=== PATIENT | male | born 1985 | race Caucasian/White ===

== ENCOUNTER 2016-06-24 14:02 | Inpatient (IN) | payer MEDICAID ==
[2016-06-24] MEDS ORDERED: ONDANSETRON 4 MG/2 ML VIAL IVP ONE (14:14)
[2016-06-24] MEDS ORDERED: NS 1,000 ML IV ONE (14:14)
[2016-06-24] MEDS ORDERED: HYDROmorphONE/DILAUDID 1 MG/ML SYR IVP ONE ×3 (14:23→16:46)
--- NOTE | 2016-06-24 14:26 | EDPHY ---
General Narrative: CHIEF COMPLAINT: Abdominal pain, vomiting, diarrhea HISTORY OF PRESENT ILLNESS: Patient complains of abdominal pain, vomiting, diarrhea started night into Wednesday morning. It is severe pain. It is worse on the left but generalized. Associated with multiple bouts of vomiting. There has been some blood in the stools but none in the vomit. Able to keep some of his pain medication liquids down today. No fever. No urinary complaints. No chest or back pain. He has had some shortness of breath over the past few weeks. No trauma or injury. He has had C. difficile colitis twice in the past 10 months. He was treated most recently January with inpatient stay and then outpatient management. No known ulcerative colitis or Crohn's disease. Reportedly normal colonoscopy last fall. No other associated complaints or modifying factors. PREVIOUS ABDOMINAL SURGERIES/DIAGNOSES: Recurrent C difficile colitis NPO: 2 days of solids, liquids this morning REVIEW OF SYSTEMS: Ten systems reviewed and are negative unless otherwise noted in the HPI EXAMINATION: General Appearance: Alert, no distress, unkempt, in obvious discomfort Head: normocephalic, atraumatic Eyes: Pupils equal and round, no conjunctival pallor or injection. EOMs intact. ENT, Mouth: Mucous membranes moist. Poor dentition throughout Neck: Normal inspection, supple, non-tender Respiratory: Lungs are clear to auscultation. No wheezing, rhonchi or crackles. Cardiovascular: Tachycardic rate with regular rhythm. No murmur. Gastrointestinal: Abdomen is soft. Significant tenderness on the left side. No tympany. No rigidity. There is guarding in all quadrants. No CVA tenderness Neurological: A&O, nonfocal, strength is symmetric Skin: Warm and dry, no rash. No petechia purpura Extremities: Nontender, no pedal edema Psychiatric: Mood and affect normal DIFFERENTIAL DIAGNOSES: Including but not limited to C diff colitis, colitis, diverticulitis perforated colitis, perforated diverticulitis, enteritis MDM: 2:25 p.m. Abdominal pain with nausea, vomiting and diarrhea. Patient's vital signs are tachycardic and tachypneic, thus I did order blood cultures and a lactic acid. He is not hypotensive. He does have significant abdominal tenderness to palpation. I have ordered CT scan of the abdomen pelvis, IV fluid resuscitation and pain medications. He is in no acute distress. 4:50 p.m. Notified by radiologist Dr. Mays. CT scan findings reveal inflammation of the small bowel and stomach suggesting enteritis. There is also some mild thickening of the descending colon that would match his clinical picture of colitis. No perforation or abscess. Laboratory studies revealed leukocytosis. I have already ordered p. o. vancomycin as the patient has had 2 episodes of C difficile colitis in the past that failed Flagyl by mouth. Chest x-ray is clear. Vital signs remained stable with some tachycardia. Pain is improving but not tolerable by his admission. 5:08 p.m. I have discussed the case with Dr. Shin and she will admit the patient. C difficile toxin is pending at this time. I suspect by history and examination of the sample this is C difficile colitis. He is not septic and does not have any evidence of ischemic bowel. He has nonacute abdomen but he is in moderate to severe amount of pain. He remains hemodynamically stable in no acute distress. He is ambulatory without assistance. He is admitted in stable condition. ED Precautions: Worsening pain. Fever. Bloody stools. Bloody emesis. Constipation or diarrhea. SUPERVISION: This patient was independently evaluated without direct examination by the attending physician. Case was discussed with attending physician. - Diagnostics Imaging: Discussed imaging studies w/ at home independent call center agent Radiologist Imaging Results: Imaging Impressions Chest X-Ray 06/24/16 14:26 Impression: Mild peribronchial thickening, without focal alveolar consolidation. Abdomen CT 06/24/16 14:27 Impression: 1. Query mild gastroenteritis. 2. Very mild descending colitis suspected in this patient with localized pain, diarrhea, and prior repetitive colitis episodes. There is no evidence of a pericolonic abscess. Findings were discussed with Aaron Mccarthy PA-C at 16:47, on 06/24/2016. - History Smoking Status: Current every day smoker - Objective Vital Signs: Initial Vital Signs Temperature (C) 97.3 F 06/24/16 14:04 Heart Rate 123 H 06/24/16 14:04 Respiratory Rate 20 06/24/16 14:04 Blood Pressure 131/74 H 06/24/16 14:04 O2 Sat (%) 98 06/24/16 14:04 O2 Delivery Mode Room Air Allergies/Adverse Reactions: gabapentin Allergy (Mild, Verified 06/24/16 14:04) pregabalin [From Lyrica] Allergy (Mild, Verified 06/24/16 14:08) pineapple Allergy (Verified 06/24/16 14:04) Home Medications: Medication Instructions Recorded Ondansetron Odt [Zofran Odt 4 mg 4 mg PO Q4 PRN #10 tab 05/27/15 (*)] Albuterol [Proventil Inhaler HFA 1 - 2 puffs IH BID PRN 01/21/16 (*)] Eszopiclone [Lunesta] 3 mg PO HS 01/21/16 Hydromorphone HCl 4 mg PO BID PRN 01/21/16 Ketamine Nasal [place] 1 spray NASAL TID PRN 01/21/16 clonazePAM [klonoPIN (*)] 1 mg PO TID PRN 01/21/16 morphINE SR [MS Contin/Oramorph 60 60 mg PO BID 01/21/16 mg (*)] morphINE SR [MS Contin/Oramorph SR 30 mg PO DAILY@1200 01/21/16 30 mg (*)] L.acidoph,Paracasei, B.lactis 1 each PO DAILY 02/03/16 [Probiotic] Multivitamins [Multivitamin (*)] 1 each PO DAILY 02/03/16 QUEtiapine FUMARATE [Seroquel 100 150 mg PO HS 02/03/16 mg (*)] Rizatriptan Benzoate [Rizatriptan] 10 mg PO PRN PRN 02/03/16 oxyCODONE HCL [Roxicodone] 30 mg PO Q6 PRN 02/03/16 Promethazine HCl [Phenergan 25mg 12.5 - 25 mg PO Q6HRS PRN #20 tab 02/07/16 (*)] Promethazine HCl [Phenergan] 25 mg RC Q6 PRN #10 supp.rect 02/07/16 Laboratory Results: Laboratory Results 06/24/16 14:35 06/24/16 14:35 06/24/16 06/24/16 06/24/16 15:30 14:35 14:35 WBC RBC Hgb Hct MCV MCH MCHC RDW Plt Count MPV Neut % (Auto) Lymph % (Auto) [place] % (Auto) Eos % (Auto) Baso % (Auto) Nucleat RBC Rel Count Absolute Neuts (auto) Absolute Lymphs (auto) Absolute Monos (auto) Absolute Eos (auto) Absolute Basos (auto) Absolute Nucleated RBC Immature Gran % Immature Gran # PT INR APTT VBG Lactic Acid 1.5 mmol/L mmol/L (0.7-2.1) Sodium 141 mEq/L mEq/L (134-144) Potassium 4.6 mEq/L mEq/L (3.5-5.2) Chloride 107 mEq/L mEq/L (97-110) Carbon Dioxide 23 mEq/l mEq/l (22-31) Anion Gap 11 mEq/L mEq/L (8-16) BUN 10 mg/dL mg/dL (7-23) Creatinine 0.7 mg/dL mg/dL (0.7-1.3) Estimated GFR > 60 Glucose 99 mg/dL mg/dL (70-100) Calcium 9.8 mg/dL mg/dL (8.5-10.4) Total Bilirubin 0.9 mg/dL mg/dL (0.1-1.4) Conjugated Bilirubin 0.5 mg/dL mg/dL (0.0-0.5) Unconjugated Bilirubin 0.4 mg/dL mg/dL (0.0-1.1) AST 42 IU/L IU/L (17-59) ALT 106 IU/L H IU/L (21-72) Alkaline Phosphatase 89 IU/L IU/L (38-126) Total Protein 7.3 g/dL g/dL (6.3-8.2) Albumin 4.6 g/dL g/dL (3.5-5.0) Lipase 37.0 IU/L IU/L (23-300) Urine Color YELLOW Urine Appearance CLEAR Urine pH 7.0 (5.0-7.5) Ur Specific [place] 1.020 (1.002-1.030) Urine Protein NEGATIVE (NEGATIVE) Urine Ketones NEGATIVE (NEGATIVE) Urine Blood NEGATIVE (NEGATIVE) Urine Nitrate NEGATIVE (NEGATIVE) Urine Bilirubin NEGATIVE (NEGATIVE) Urine Urobilinogen 2.0 EU H EU (0.2-1.0) Ur Leukocyte Esterase NEGATIVE (NEGATIVE) Ur Culture Indicated? NOT INDICATED (NI) Urine Glucose NEGATIVE (NEGATIVE) Urine Opiates Screen NON-NEGATIVE H (NEGATIVE) Urine Barbiturates NEGATIVE (NEGATIVE) Ur Phencyclidine Scrn NEGATIVE (NEGATIVE) Ur Amphetamine Screen NEGATIVE (NEGATIVE) U Benzodiazepines Scrn NON-NEGATIVE H (NEGATIVE) Urine Cocaine Screen NEGATIVE (NEGATIVE) U Marijuana (THC) Screen NEGATIVE (NEGATIVE) 06/24/16 06/24/16 14:35 14:35 WBC 11.29 10^3/uL H 10^3/uL (3.80-9.50) RBC 5.10 10^6/uL 10^6/uL (4.40-6.38) Hgb 15.7 g/dL g/dL (13.7-17.5) Hct 45.7 % % (40.0-51.0) MCV 89.6 fL fL (81.5-99.8) MCH 30.8 pg pg (27.9-34.1) MCHC 34.4 g/dL g/dL (32.4-36.7) RDW 13.3 % % (11.5-15.2) Plt Count 297 10^3/uL 10^3/uL (150-400) MPV 10.3 fL fL (8.7-11.7) Neut % (Auto) 70.0 % % (39.3-74.2) Lymph % (Auto) 21.6 % % (15.0-45.0) [place] % (Auto) 6.1 % % (4.5-13.0) Eos % (Auto) 1.5 % % (0.6-7.6) Baso % (Auto) 0.4 % % (0.3-1.7) Nucleat RBC Rel Count 0.0 % % (0.0-0.2) Absolute Neuts (auto) 7.90 10^3/uL H 10^3/uL (1.70-6.50) Absolute Lymphs (auto) 2.44 10^3/uL 10^3/uL (1.00-3.00) Absolute Monos (auto) 0.69 10^3/uL 10^3/uL (0.30-0.80) Absolute Eos (auto) 0.17 10^3/uL 10^3/uL (0.03-0.40) Absolute Basos (auto) 0.04 10^3/uL 10^3/uL (0.02-0.10) Absolute Nucleated RBC 0.00 10^3/uL 10^3/uL (0-0.01) Immature Gran % 0.4 % % (0.0-1.1) Immature Gran # 0.05 10^3/uL 10^3/uL (0.00-0.10) PT 12.4 SEC SEC (12.0-15.0) INR 0.93 (0.83-1.16) APTT 23.0 SEC SEC (23.0-38.0) VBG Lactic Acid Sodium Potassium Chloride Carbon Dioxide Anion Gap BUN Creatinine Estimated GFR Glucose Calcium Total Bilirubin Conjugated Bilirubin Unconjugated Bilirubin AST ALT Alkaline Phosphatase Total Protein Albumin Lipase Urine Color Urine Appearance Urine pH Ur Specific [place] Urine Protein Urine Ketones Urine Blood Urine Nitrate Urine Bilirubin Urine Urobilinogen Ur Leukocyte Esterase Ur Culture Indicated? Urine Glucose Urine Opiates Screen Urine Barbiturates Ur Phencyclidine Scrn Ur Amphetamine Screen U Benzodiazepines Scrn Urine Cocaine Screen U Marijuana (THC) Screen Medications Given: Discontinued Medications Hydromorphone HCl (Dilaudid) 1 mg IVP EDNOW ONE Stop: 06/24/16 14:24 Last Admin: 06/24/16 14:20 Dose: 1 mg Hydromorphone HCl (Dilaudid) 1 mg IVP EDNOW ONE Stop: 06/24/16 15:25 Last Admin: 06/24/16 15:25 Dose: 1 mg Hydromorphone HCl (Dilaudid) 1 mg IVP EDNOW ONE Stop: 06/24/16 16:47 Last Admin: 06/24/16 16:54 Dose: 1 mg Sodium Chloride (Ns) 1,000 mls @ 0 mls/hr IV ONCE ONE PRN Reason: Wide Open Stop: 06/24/16 14:15 Last Admin: 06/24/16 14:20 Dose: 1,000 mls Ondansetron HCl (Zofran) 4 mg IVP EDNOW ONE Stop: 06/24/16 14:15 Last Admin: 06/24/16 14:20 Dose: 4 mg Departure - Departure Disposition: [facility] Acute Clinical Impression: Acute colitis Nausea & vomiting Qualifiers: Vomiting type: unspecified Vomiting Intractability: non-intractable Qualified Code(s): R11.2 - Nausea with vomiting, unspecified Diarrhea Qualifiers: Diarrhea type: unspecified type Qualified Code(s): R19.7 - Diarrhea, unspecified Condition: Good Referrals: Trino Modi MD [Primary Care Provider] - As per Instructions
[2016-06-24 14:57] LABS: % IMMATURE GRANULYOCYTES 0.4 % (0.0-1.1); ABSOLUTE IMMATURE GRANULOCYTES 0.05 10^3/uL (0.00-0.10); ADD DIFF? NO; ADD MORPH? NO; ADD SCAN? NO; ATYPICAL LYMPHOCYTE FLAG 0 (0-99); FRAGMENT RBC FLAG 0 (0-99); HEMATOCRIT 45.7 % (40.0-51.0); HEMOGLOBIN 15.7 g/dL (13.7-17.5); LEFT SHIFT FLG 0 (0-99); LIPEMIA HEMOLYSIS FLAG 90 (0-99); MEAN CELL HEMOGLOBIN 30.8 pg (27.9-34.1); MEAN CELL HEMOGLOBIN CONCENTR. 34.4 g/dL (32.4-36.7); MEAN CELL VOLUME 89.6 fL (81.5-99.8); MEAN PLATELET VOLUME 10.3 fL (8.7-11.7); PLATELET CLUMPS FLAG 10 (0-99); PLATELET COUNT 297 10^3/uL (150-400); RED CELL DISTRIBUTION WIDTH 13.3 % (11.5-15.2)
[2016-06-24 15:11] LABS: INR 0.93 (0.83-1.16); PROTIME(PATIENT) 12.4 SEC (12.0-15.0)
[2016-06-24 15:26] LABS: ALANINE AMINOTRANSFERASE 106 IU/L (21-72); ALBUMIN 4.6 g/dL (3.5-5.0); ALKALINE PHOSPHATASE 89 IU/L (38-126); ANION GAP 11 mEq/L (8-16); ASPARTATE AMINOTRANSFERASE 42 IU/L (17-59); BILIRUBIN,TOTAL 0.9 mg/dL (0.1-1.4); BILIRUBIN-CONJUGATED 0.5 mg/dL (0.0-0.5); BILIRUBIN-UNCONJUGATED 0.4 mg/dL (0.0-1.1); CALCIUM 9.8 mg/dL (8.5-10.4); CARBON DIOXIDE 23 mEq/l (22-31); CHLORIDE 107 mEq/L (97-110); CREATININE 0.7 mg/dL (0.7-1.3); GLOMERULAR FILTRATION RATE > 60; GLUCOSE 99 mg/dL (70-100); POTASSIUM 4.6 mEq/L (3.5-5.2); SODIUM 141 mEq/L (134-144); TOTAL PROTEIN 7.3 g/dL (6.3-8.2)
[2016-06-24 15:41] LABS: COLOR YELLOW; LEUKOCYTE ESTERASE,URINE NEGATIVE (NEGATIVE); NITRITE,URINE NEGATIVE (NEGATIVE)
[2016-06-24] MEDS ORDERED: IOPAMIDOL (ISOVUE-300) 100 ML BTL IV ONE (16:07)
[2016-06-24] MEDS ORDERED: VANCOMYCIN 125 MG/2.5 ML UDL PO ONE (17:00)
[2016-06-24] MEDS ORDERED: ACETAMINOPHEN 325 MG TAB PO PRN (18:55)
[2016-06-24] MEDS ORDERED: Rizatriptan Benzoate [Rizatriptan] 10 MG PO PRN (18:55)
[2016-06-24] MEDS ORDERED: ALBUTEROL 60 PUFFS/8 GM MDI IH PRN (18:55)
[2016-06-24] MEDS ORDERED: KETAMINE NASAL PRN (18:55)
[2016-06-24] MEDS ORDERED: NALOXONE NS SCH (19:00)
--- NOTE | 2016-06-24 20:08 | GHP ---
[f rep st] HISTORY AND PHYSICAL DATE OF ADMISSION: 06/24/2016 CHIEF COMPLAINT: Abdominal pain and diarrhea. The patient is a 31-year-old male with history of recurrent Clostridium difficile infections and chronic regional pain syndrome to right jaw and leg, presenting with progressive abdominal pain, nausea, and diarrhea. States these symptoms started night, into Wednesday morning. Pain is worse in the left lower abdomen, sharp in nature. There has been some blood in the stools, and minimal in emesis. He has been able to keep some of his pain down and some liquids. Denies fevers. No dysuria, no chest or back pain. Has had some shortness of breath over the past 2 weeks. He reports having 4 prior episodes of Clostridium difficile. He was most recently treated in January, and then was discharged on oral antibiotics. He had a normal colonoscopy in January of 2016 here. Primary pain management is Dr. Mckeon. REVIEW OF SYSTEMS: I completed a 10-point review of systems, negative except as noted in HPI. PAST MEDICAL HISTORY: Recurrent Clostridium difficile colitis, IBS, chronic regional pain syndrome of jaw and right leg, narcotic dependency, tobacco abuse. PAST SURGICAL HISTORY: None. FAMILY HISTORY: Mother with IBS. SOCIAL HISTORY: [place] here [place] town, smokes less than a pack of cigarettes a day. No alcohol or illicit. MEDICATIONS: See home medications list. ALLERGIES: Gabapentin, pregabalin and pineapple. PHYSICAL EXAMINATION: VITAL SIGNS: Temperature 36.8, blood pressure 113/70, heart rate 70s to 123, respiratory rate 18, 96% on room air. GENERAL: Tired- appearing, slightly uncomfortable. HEENT: PERRLA, dry mucous membranes. Oropharynx clear. CV: Regular rate and rhythm, no murmurs, gallops, or rubs. LUNGS: Clear, with occasional expiratory wheeze. ABDOMEN: Soft, mildly distended, tenderness in the lower quadrants, more on the left. No rebound or guarding. Quiet bowel sounds. : No suprapubic tenderness. MUSCULOSKELETAL : With 5/5 lower extremity strength. NEUROLOGIC: Cranial nerves 2 through 12 intact. PSYCHIATRIC: Alert and oriented x3. LABORATORY DATA: Clostridium difficile positive, WBC 11.2, hemoglobin 15, hematocrit 47, platelets 297, coags within normal. Lactate 1.5, sodium 141, potassium 4.6, chloride 107, carbon dioxide 23, BUN 11, creatinine 0.7, glucose 99, AST 42, ALT 106. The remaining LFTs are within normal, lipase 37. Abdominal CT, 06/2016, mild gastroenteritis. Very mild descending colitis. No abscess. Chest x-ray is personally reviewed by me. No effusion or opacity, some peribronchial cuffing. I personally reviewed [facility] EGD, 01/2016, entire colonic mucosa normal. Pathology, 01/2015, negative for gastritis and Helicobacter pylori. ASSESSMENT AND PLAN: 1. Recurrent C diff: has a history of Clostridium difficile. Given progressive symptoms, we will treat with oral vancomycin. Infectious Disease consult in the morning, p.r.n. antiemetics. IV fluids. No Imodium with Clostridium difficile. 2. Chronic regional pain syndrome, we will continue home medications. 3. Tobacco abuse, nicotine patch. 4. Leukocytosis, mild, secondary to Clostridium difficile versus stress response. 5. Nausea ,p.r.n. antiemetics. 6. Diet, advance as tolerated. 7. Deep venous thrombosis prophylaxis, low risk. 8. This patient warrants observation and admission given acute diarrheal infection, warranting intravenous fluids and an Infectious Disease consult. /[id number]/MODL MTDD
[2016-06-24] MEDS: ZOLPIDEM TARTRATE 5 MG TAB PO SCH (21:04)
[2016-06-24] MEDS: VANCOMYCIN 125 MG/2.5 ML UDL PO SCH (21:04)
[2016-06-24] MEDS: morphINE SR 60 MG TAB PO SCH (21:04)
[2016-06-24] MEDS: DIAZEPAM 10 MG TAB PO SCH (21:04)
[2016-06-24] MEDS: NORTRIPTYLINE HCL 25 MG CAP PO SCH (21:05)
[2016-06-24] MEDS: QUEtiapine FUMARATE 100 MG TAB PO SCH (21:16)
[2016-06-24] MEDS: HYDROmorphONE/DILAUDID 2 MG TAB PO PRN (21:30)
[2016-06-24] MEDS: NS 1,000 ML IV SCH (22:44)
[2016-06-25] MEDS: NICOTINE 14 MG/24 HR PATCH TD SCH ×2 (00:19→09:55)
[2016-06-25] MEDS: VANCOMYCIN 125 MG/2.5 ML UDL PO SCH ×4 (05:01→20:48)
[2016-06-25] MEDS: NS 1,000 ML IV SCH ×3 (05:01→20:49)
[2016-06-25 05:34] LABS: HEMATOCRIT 40.8 % (40.0-51.0); HEMOGLOBIN 13.8 g/dL (13.7-17.5); MEAN CELL HEMOGLOBIN 30.9 pg (27.9-34.1); MEAN CELL HEMOGLOBIN CONCENTR. 33.8 g/dL (32.4-36.7); MEAN CELL VOLUME 91.5 fL (81.5-99.8); RED BLOOD CELL COUNT 4.46 10^6/uL (4.40-6.38); RED CELL DISTRIBUTION WIDTH 13.2 % (11.5-15.2)
[2016-06-25 05:50] LABS: ANION GAP 7 mEq/L (8-16); CALCIUM 8.6 mg/dL (8.5-10.4); CARBON DIOXIDE 24 mEq/l (22-31); CHLORIDE 109 mEq/L (97-110); CREATININE 0.7 mg/dL (0.7-1.3); GLOMERULAR FILTRATION RATE > 60; GLUCOSE 91 mg/dL (70-100); POTASSIUM 4.5 mEq/L (3.5-5.2); SODIUM 140 mEq/L (134-144)
[2016-06-25] MEDS: morphINE SR 60 MG TAB PO SCH ×2 (06:29→18:30)
[2016-06-25] MEDS: ONDANSETRON DISINTEGRATING 4 MG TAB PO PRN ×3 (07:44→18:30)
[2016-06-25] MEDS: HYDROmorphONE/DILAUDID 2 MG TAB PO PRN ×3 (07:44→20:06)
[2016-06-25] MEDS ORDERED: NICOTINE 14 MG/24 HR PATCH TD SCH (09:00)
[2016-06-25] MEDS: DIAZEPAM 10 MG TAB PO SCH (09:52)
[2016-06-25] MEDS: MULTIVITAMINS 1 EACH TAB PO SCH (09:53)
[2016-06-25] MEDS: morphINE SR 30 MG TAB PO SCH (09:53)
--- NOTE | 2016-06-25 16:48 | HOSPPROG ---
Hospitalist Progress Note Assessment/Plan: Assessment: 31-year-old male presents with recurrent C difficile colitis in the setting of chronic pain with continuous opiate dependency Plan: 1. Recurrent C difficile colitis. Discussed with Dr. Marti, the CT imaging findings of mild colitis do indeed seem to be present and in the context of a positive C diff PCR as well as worsening abdominal symptoms and diarrhea prior to this presentation, we will agree to treat the patient with vancomycin 125 mg q.6 hours for 14 days -reviewed outside records including discharge summary by Dr. Ekaterina Ruiz from 02/07/2016, reporting that patient had a normal EGD and colonoscopy in the setting of abdominal pain and C diff colonization, suspected that his symptoms were all irritable bowel syndrome related and/or regional pain syndrome -patient has begun seeing improvement in his loose bowel movements -he continues to experience significant abdominal pain -patient has been unable to tolerate oral intake today, unsafe to be discharged home, continue on IV fluids 2. Chronic pain with continuous opiate dependency. The patient believes that he has a chronic regional pain syndrome and he is chronically on opiates for management -patient has recently been transferred from the pain management clinic to the office of Dr. Modi - despite treatment for above, I would suspect the patient will continue to experience significant abdominal pain symptoms as these are his primary chronic pain symptoms and I would not recommend escalating narcotic pain medications Diet. Regular diet Prophylaxis. High risk patient given mobility, Lovenox 40 Code. Full Disposition. Anticipated discharge is 06/26, stabilization of abdominal pain and loose bowel movements, upgraded to inpatient admission status given clinically on resolved C difficile colitis. Subjective: patient reports he has ongoing severe abdominal pain Objective: Vital Signs Temp Pulse Resp BP Pulse Ox 36.4 C 82 16 121/79 H 93 06/25/16 15:55 06/25/16 15:55 06/25/16 15:55 06/25/16 15:55 06/25/16 15:55 Laboratory Results 06/25/16 04:55 06/25/16 04:55 06/24/16 06/25/16 06/26/16 05:59 05:59 05:59 Intake Total 1200 250 Output Total 2 Balance 1198 250 PT 12.4 SEC (12.0-15.0) 06/24/16 14:35 INR 0.93 (0.83-1.16) 06/24/16 14:35 - Pending Discharge Pending Discharge Within 24 Hours: Yes Pending Discharge Date: 06/26/16 Pending Discharge Time: 11:00 - Physical Exam Constitutional: appears nourished, uncomfortable, No no apparent distress ( mild ), No not in pain Cardiovascular: regular rate and rhythym, no murmur, rub, or gallop Respiratory: no respiratory distress, no rales or rhonchi, clear to auscultation Gastrointestinal: normoactive bowel sounds, tenderness ( diffusely throughout), No guarding, No distension Neurologic: AAOx3, No weakness Psychiatric: not encephalopathic, anxious, flat affect, No agitated ICD10 Worksheet Patient Problems: Problems Problem Status Onset Chronic pain Acute C. difficile colitis Acute Chronic abdominal pain Acute Nausea & vomiting Acute Abdominal pain Acute Opiate dependence, continuous Acute C. difficile diarrhea Acute 06/24/16 Acute colitis Acute Nausea & vomiting Acute Diarrhea Acute
--- NOTE | 2016-06-25 17:57 | GCON ---
[f rep st] CONSULTATION INPATIENT INFECTIOUS DISEASE CONSULTATION DATE OF CONSULTATION: 06/25/2016 REFERRING PHYSICIAN: Noreen Shin MD REASON FOR REFERRAL: Probable C difficile colitis. HISTORY OF PRESENT ILLNESS: Patient is a 31-year-old male who has a history of positive C difficile stool tests. The patient has a history as well of chronic regional pain syndrome. He presented to the emergency room yesterday afternoon, on 06/24, complaining of abdominal pain, vomiting, and diar franco. CT scan of the abdomen without oral or IV contrast revealed some possible descending colon th ickening. His stool PCR array showed C difficile detected. He started on oral vancomycin 125 mg p. o. q.i.d. so far, he is not noticing any significant change. He states he still had some diarrhea this morning. He complains of abdominal pain in a global distribution. No fevers. PAST MEDICAL HISTORY: 1. Chronic regional pain syndrome. 2. Irritable bowel syndrome. 3. Narcotic dependency. 4. Tobacco abuse. 5. Prior C difficile colitis. PAST SURGICAL HISTORY: None. ANTIBIOTICS: Vancomycin 125 mg p.o. q.i.d. ALLERGIES: The patient is reportedly allergic to gabapentin, pregabalin, and pineapple. SOCIAL HISTORY: The patient is a current smoker. Denies any other alcohol or illicit drugs. He li ves locally. He is accompanied by a girlfriend. FAMILY HISTORY: The patient states that his mother has irritable bowel syndrome. REVIEW OF SYSTEMS: Other than that detailed above in History of Present Illness, a comprehensive 10 -system review is negative. PHYSICAL EXAMINATION: VITAL SIGNS: Temperature maximum is 36.8, temperature current is 36.4, heart rate is 82, respiratory rate is 16, blood pressure is 121/79. GENERAL: The patient is a well-form ed, well-nourished, male in no acute distress. He is not toxic in appearance. He is alert and orie nted x3. He is in a pleasant demeanor. HEENT: Normocephalic for age. Atraumatic. No scleral ict erus. No oral lesion or drainage from the nares. EYES: Lids and conjunctivae are within normal li mits. Pupils are equal, round, bilaterally. NECK: Supple without meningismus. LUNGS: Clear to a uscultation bilaterally with good effort. HEART: Regular rate and rhythm. No murmur, rub, or gall op noted. No significant peripheral edema. ABDOMEN: Soft. Tender in all quadrants, although incr eased tenderness with palpation in the left lower quadrant. No rebound. SKIN: Warm and dry to the touch. No rash or lesion. MUSCULOSKELETAL: No muscle belly tenderness is noted. No joint line e ffusion or arthritis seen. NEUROLOGIC: Cranial nerves 2 through 12 seem to be intact. Peripheral sensation seems intact in all extremities. LABORATORY DATA: Patient has a CBC dated 06/25/2016, shows a white blood cell count of 6.34, hemogl obin of 13.8, hematocrit is 40.8, and a platelet count of 244. Serum chemistries on 06/25/2016, david w a sodium of 140, potassium 4.5, chloride of 109, bicarbonate of 24, BUN of 9, and creatinine 0.7. MICROBIOLOGIC DATA: The patient has stool GI tract panel PCR showing C difficile. RADIOLOGIC DATA: Patient has a noncontrast abdominal CT dated 06/24/2016, which shows mild gastroen teritis and mild descending colitis. ASSESSMENT: Radiologic evidence of descending colitis with complaints of pain and diarrhea with pos itive Clostridium difficile study. Clearly from prior presentations, the patient will be Clostridiu m difficile colonized, so his PCR being positive is no surprise. However, the presentation along wi th a mild initial leukocytosis as well as radiologic evidence of bowel wall thickening may correspon d with active Clostridium difficile colitis. We will continue the oral vancomycin 125 mg p.o. 4 kelsey es a day. Expect that symptomatic improvement will be most noted around day 2 to day 4. We will re -evaluate clinically. PLAN: 1. Vancomycin 125 mg p.o. q.i.d. x14 days. 2. Follow his clinical course of improvement. /[id number]/MODL
[2016-06-25] MEDS: ONDANSETRON 4 MG/2 ML VIAL IVP PRN (20:48)
[2016-06-25] MEDS: QUEtiapine FUMARATE 100 MG TAB PO SCH (20:48)
[2016-06-25] MEDS: NORTRIPTYLINE HCL 25 MG CAP PO SCH (20:48)
[2016-06-25] MEDS: ZOLPIDEM TARTRATE 5 MG TAB PO SCH (22:13)
[2016-06-26] MEDS: ONDANSETRON 4 MG/2 ML VIAL IVP PRN (02:45)
[2016-06-26] MEDS: HYDROmorphONE/DILAUDID 2 MG TAB PO PRN ×2 (02:45→10:04)
[2016-06-26 05:19] LABS: % IMMATURE GRANULYOCYTES 0.2 % (0.0-1.1); ABSOLUTE IMMATURE GRANULOCYTES 0.01 10^3/uL (0.00-0.10); ADD DIFF? NO; ADD MORPH? NO; ADD SCAN? NO; ATYPICAL LYMPHOCYTE FLAG 10 (0-99); FRAGMENT RBC FLAG 0 (0-99); HEMATOCRIT 41.5 % (40.0-51.0); LEFT SHIFT FLG 0 (0-99); LIPEMIA HEMOLYSIS FLAG 80 (0-99); MEAN CELL HEMOGLOBIN 30.4 pg (27.9-34.1); MEAN CELL HEMOGLOBIN CONCENTR. 33.7 g/dL (32.4-36.7); MEAN PLATELET VOLUME 10.1 fL (8.7-11.7); PLATELET CLUMPS FLAG 10 (0-99); PLATELET COUNT 260 10^3/uL (150-400); RED BLOOD CELL COUNT 4.61 10^6/uL (4.40-6.38); RED CELL DISTRIBUTION WIDTH 12.9 % (11.5-15.2)
[2016-06-26 05:35] LABS: POTASSIUM 4.3 mEq/L (3.5-5.2)
[2016-06-26 05:36] LABS: ANION GAP 6 mEq/L (8-16); CALCIUM 8.3 mg/dL (8.5-10.4); CARBON DIOXIDE 21 mEq/l (22-31); CHLORIDE 111 mEq/L (97-110); CREATININE 0.6 mg/dL (0.7-1.3); GLOMERULAR FILTRATION RATE > 60; GLUCOSE 127 mg/dL (70-100); SODIUM 138 mEq/L (134-144)
[2016-06-26] MEDS: morphINE SR 60 MG TAB PO SCH (06:44)
[2016-06-26] MEDS: VANCOMYCIN 125 MG/2.5 ML UDL PO SCH ×2 (06:44→12:00)
[2016-06-26 09:01] VITALS: BP 102/57; PULSE 75; RESP 16; TEMP 97.7; O2SAT 94
[2016-06-26] MEDS: NICOTINE 14 MG/24 HR PATCH TD SCH (10:03)
[2016-06-26] MEDS: MULTIVITAMINS 1 EACH TAB PO SCH (10:05)
[2016-06-26] MEDS: morphINE SR 30 MG TAB PO SCH (10:05)
--- NOTE | 2016-06-26 11:05 | PDDCSUM ---
Discharge Summary Discharge Summary: DISCHARGE SUMMARY FOLLOW-UP ITEMS: Follow-up need for ongoing vancomycin therapy DATE OF ADMISSION: 06/24/2016 DATE OF DISCHARGE: 06/26/2016 DISCHARGE DIAGNOSES: 1. Recurrent C difficile colitis 2. Chronic pain with continuous opiate and benzodiazepine dependency CONSULTATIONS: Infectious Disease by Dr. Marti PROCEDURES / IMAGING: CT of the abdomen demonstrating some mild descending colitis CHIEF COMPLAINT: Acute abdominal pain, diarrhea, vomiting SUBJECTIVE: Patient is feeling improved at discharge, he is not having diarrhea, he is tolerating oral solids and liquids PHYSICAL EXAM ON DISCHARGE: Systolic blood pressure is 120, heart rate 80, afebrile overnight, abdomen is soft nontender to mild palpation, no guarding, bowel sounds are present and normoactive LABS ON DISCHARGE: White blood cell count 5700, hemoglobin 14, creatinine 0.6 HOSPITAL COURSE BY PROBLEM: 1. Recurrent C difficile colitis. The patient has known C difficile colonization but on this presentation he had leukocytosis as well as CT imaging findings of mild colitis in the descending colon as well as symptomatic diarrhea and vomiting. Dr. Marti and I decided to treat with vancomycin 125 mg q.6 hours for total 14 days. The patient's symptoms have improved with 2 days of treatment and he will receive 12 days as an outpatient. He is also tolerating oral intake and is no longer having diarrhea. Given the complex nature of his chronic abdominal pain as well as C difficile colonization, I have advised the patient to follow up with Dr. Marti in approximately 12 days time to assist with appropriate ongoing outpatient management of these issues and avoid over treatment. He has previously been seen at [facility] and his most recent EGD and colonoscopy were in January, both unremarkable. 2. Chronic pain with continuous opiate and benzodiazepine dependency. Patient believes that he has a chronic regional pain syndrome and he is chronically on opiates and benzodiazepines for management. He most likely also has an irritable bowel syndrome component as his pain frequently manifests itself as abdominal symptoms. The symptoms can be easily confused with C diff given that the patient has chronic colonization and his PCR tests are frequently positive. He has been transferred from the pain management clinic to the office of Dr. Modi, and I have advised the patient follow up closely with his primary care provider. The patient is considering the idea of an interventional pain specialist and he can receive a referral for 1 through his primary care provider office. DISCHARGE MEDICATIONS: Please see official discharge medication reconciliation sheet in chart , vancomycin 125 mg q.6 hours for 12 subsequent days. DISCHARGE INSTRUCTIONS: Continue all other home medications, follow up with Dr. Marti in approximately 12 days, follow up with PCP closely. TIME SPENT: Greater than 30 minutes were spent on direct patient care, as well as discharge planning and preparation.
== END 2016-06-26 13:03 | disposition home or self-care (01) | DRG 372 ==
LOC: INTOOBSV 17:07 → F1N 18:16 → OBSVTOIN 06-25 16:44
PROVIDERS: ADMIT Internal Medicine; ATTEND Internal Medicine
DX: A04.7 Enterocolitis due to Clostridium difficile (principal); F11.20 Opioid dependence, uncomplicated; F13.20 Sedative, hypnotic or anxiolytic dependence, uncomplicated; F17.210 Nicotine dependence, cigarettes, uncomplicated; G89.29 Other chronic pain
CPT/HCPCS: 80305; 96374; G0378; J1170; J2405; Q9967

== ENCOUNTER 2016-07-22 16:19 | Emergency (ER) | payer MEDICAID ==
[2016-07-22] MEDS ORDERED: ONDANSETRON 4 MG/2 ML VIAL ONE (16:44)
[2016-07-22] MEDS ORDERED: NS 1,000 ML IV ONE ×2 (16:49→18:40)
[2016-07-22] MEDS ORDERED: ONDANSETRON 4 MG/2 ML VIAL IVP ONE (16:49)
--- NOTE | 2016-07-22 16:54 | EDPHY ---
H & P Stated Complaint: DIARRHEA/N/V ?C DIFF PAVON/UNABLE TO KEEP DOWN PAIN MEDS Time Seen by Provider: 07/22/16 16:34 HPI/ROS: Chief Complaint: Abdominal pain, pelvic pain, nausea, vomiting HPI: 31 year old male with a history of chronic abdominal pain, chronic diarrhea but is noted to be C difficile colonized presenting complaining of nausea vomiting worsening pelvic pain. Patient states that he has been having pelvic pain for the past year. He has a chronic pain syndrome of regional pain for which he takes chronic narcotic pain medications. Patient states that for the last 3 days he has had increasing nausea and vomiting has been unable to keep his pain medicines down. He has also been having worsening pelvic pain but thinks that might be secondary to his inability to take his chronic medications. He is supposed to be providing a urine sample for urinalysis but his primary care physician wanted to wait until he was done with the vancomycin he has been taking for his C difficile. No hematemesis. No melena or hematochezia. His continue have persistent intermittent diarrhea which is his norm. Is having some chills but this is in light of his not being able to tolerate his normal medications. ROS: 10 point Review of Systems is negative except as noted in the HPI. 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 Chronic pain syndrome Social History: No smoking, no alcohol, no recreational drug use Family History: non-contributory Physical Exam: Gen: Awake, Alert, diaphoretic, anxious and uncomfortable appearing HEENT: Nose: no rhinorrhea Eyes: PERRLA, EOMI Mouth: Moist mucosa Neck: Supple, no JVD Chest: nontender, lungs clear to auscultation Heart: S1, S2 normal, no murmur Abd: Soft, non-tender, no guarding Genital: some mild suprapubic tenderness with no lesions palpable, normal genitalia without rash or mass Back: no CVA tenderness, no midline tenderness Ext: no edema, non-tender Skin: no rash Neuro: CN II-XII intact, Sensation grossly intact, Strength 5/5 in bilateral upper and lower extremities - Personal History Current Tetanus/Diphtheria Vaccine: No - Medical/Surgical History Hx Asthma: Yes Hx Chronic Respiratory Disease: No Hx Diabetes: No Hx Cardiac Disease: No Hx Renal Disease: No Hx Cirrhosis: No Hx Alcoholism: No Hx HIV/AIDS: No Hx Splenectomy or Spleen Trauma: No Other PMH: PMH: CDIFF,. CRPS, SEE [facility]. PSH: ORAL SURGERY. CELLULITIS. migraines - Social History Smoking Status: Current every day smoker Constitutional: Initial Vital Signs Temperature (C) 36.8 C 07/22/16 16:27 Heart Rate 100 07/22/16 16:27 Respiratory Rate 20 07/22/16 16:27 Blood Pressure 130/95 H 07/22/16 16:27 O2 Sat (%) 96 07/22/16 16:27 O2 Delivery Mode Room Air Allergies/Adverse Reactions: gabapentin Allergy (Mild, Verified 07/22/16 16:26) pregabalin [From Lyrica] Allergy (Mild, Verified 07/22/16 16:26) pineapple Allergy (Verified 07/22/16 16:26) Home Medications: Medication Instructions Recorded Ondansetron Odt [Zofran Odt 4 mg 4 mg PO Q4 PRN #10 tab 05/27/15 (*)] Albuterol [Proventil Inhaler HFA 1 - 2 puffs IH BID PRN 01/21/16 (*)] Eszopiclone [Lunesta] 3 mg PO HS 01/21/16 Ketamine Nasal [employer] 1 - 2 spray NASAL TID PRN 01/21/16 morphINE SR [MS Contin/Oramorph 60 60 mg PO Q12H 01/21/16 mg (*)] morphINE SR [MS Contin/Oramorph SR 30 mg PO DAILY 01/21/16 30 mg (*)] Multivitamins [Multivitamin (*)] 1 each PO DAILY 02/03/16 QUEtiapine FUMARATE [Seroquel 100 150 mg PO HS 02/03/16 mg (*)] Rizatriptan Benzoate [Rizatriptan] 10 mg PO PRN PRN 02/03/16 oxyCODONE HCL [Roxicodone] 30 mg PO Q4H PRN 02/03/16 Diazepam [Valium 10 MG (*)] 10 mg PO BID 06/24/16 HYDROmorphone HCL [Hydromorphone 2 mg PO Q6H PRN 06/24/16 HCl] Naloxone HCl [Narcan] 1 ml NS AD 06/24/16 Nortriptyline HCl [Pamelor 25 mg 25 mg PO HS 06/24/16 (*)] Vancomycin [Vancomycin (*)] 125 mg PO Q6 #48 cap 06/26/16 Ketamine 07/22/16 Medical Decision Making - Data Points Laboratory Results: Laboratory Results 07/22/16 16:54 07/22/16 07/22/16 19:53 16:54 Sodium 139 mEq/L mEq/L (134-144) Potassium 4.2 mEq/L mEq/L (3.5-5.2) Chloride 106 mEq/L mEq/L (97-110) Carbon Dioxide 21 mEq/l L mEq/l (22-31) Anion Gap 12 mEq/L mEq/L (8-16) BUN 11 mg/dL mg/dL (7-23) Creatinine 0.8 mg/dL mg/dL (0.7-1.3) Estimated GFR > 60 Glucose 112 mg/dL H mg/dL (70-100) Calcium 9.8 mg/dL mg/dL (8.5-10.4) Urine Color ANTWON Urine Appearance CLEAR Urine pH 6.0 (5.0-7.5) Ur Specific [place] 1.026 (1.002-1.030) Urine Protein 2+ H (NEGATIVE) Urine Ketones 2+ H (NEGATIVE) Urine Blood 1+ H (NEGATIVE) Urine Nitrate NEGATIVE (NEGATIVE) Urine Bilirubin NEGATIVE (NEGATIVE) Urine Urobilinogen 2.0 EU H EU (0.2-1.0) Ur Leukocyte Esterase NEGATIVE (NEGATIVE) Urine RBC 10-15 /hpf H /hpf (0-3) Urine WBC 5-10 /hpf H /hpf (0-3) Ur Epithelial Cells NONE SEEN /lpf /lpf (NONE-1+) Urine Mucus 2+ /lpf H /lpf (NONE-1+) Urine Glucose NEGATIVE (NEGATIVE) Medications Given: Discontinued Medications Sodium Chloride (Ns) 1,000 mls @ 0 mls/hr IV ONCE ONE PRN Reason: Wide Open Stop: 07/22/16 16:50 Last Admin: 07/22/16 17:00 Dose: 1,000 mls Sodium Chloride (Ns) 1,000 mls @ 0 mls/hr IV ONCE ONE PRN Reason: Wide Open Stop: 07/22/16 18:41 Last Admin: 07/22/16 18:50 Dose: 1,000 mls Lorazepam (Ativan Injection) 0.5 mg IVP EDNOW ONE Stop: 07/22/16 18:42 Last Admin: 07/22/16 18:50 Dose: 0.5 mg Morphine Sulfate (Morphine Ir) 30 mg PO ONCE ONE Stop: 07/22/16 19:01 Last Admin: 07/22/16 19:16 Dose: 30 mg Ondansetron HCl (Zofran) 4 mg IVP EDNOW ONE Stop: 07/22/16 16:50 Last Admin: 07/22/16 17:04 Dose: 4 mg Departure - Departure Disposition: Home, Routine, Self-Care Clinical Impression: Abdominal pain, Chronic pain, Chronic abdominal pain Condition: Good Instructions: Chronic Abdominal Pain (ED) Additional Instructions: Follow up with Urology in 3-4 days for re-evaluation. Return emergency department for uncontrolled nausea vomiting, worsening chills, inability to urinate, or any other concerns. Referrals: Trino Modi MD [Primary Care Provider] - As per Instructions Adria Cruz MD [Medical Doctor] - As per Instructions
[2016-07-22 17:27] LABS: ANION GAP 12 mEq/L (8-16); CALCIUM 9.8 mg/dL (8.5-10.4); CARBON DIOXIDE 21 mEq/l (22-31); CHLORIDE 106 mEq/L (97-110); CREATININE 0.8 mg/dL (0.7-1.3); GLOMERULAR FILTRATION RATE > 60; GLUCOSE 112 mg/dL (70-100); POTASSIUM 4.2 mEq/L (3.5-5.2); SODIUM 139 mEq/L (134-144)
[2016-07-22] MEDS ORDERED: morphINE SR 15 MG TAB PO ONE (18:40)
[2016-07-22] MEDS ORDERED: LORazepam 2 MG/ML INJ IVP ONE (18:41)
[2016-07-22] MEDS ORDERED: LORazepam 2 MG/ML INJ ONE (18:43)
[2016-07-22] MEDS ORDERED: morphINE IR 30 MG TAB PO ONE (19:00)
[2016-07-22 19:59] LABS: COLOR AMBER; LEUKOCYTE ESTERASE,URINE NEGATIVE (NEGATIVE); NITRITE,URINE NEGATIVE (NEGATIVE)
[2016-07-22 20:13] LABS: MUCUS 2+ /lpf (NONE-1+)
[2016-07-22 20:42] VITALS: BP 131/78; PULSE 89; RESP 16; TEMP 97.7; O2SAT 97
== END 2016-07-22 20:41 | disposition home or self-care (01) ==
DX: R10.9 Unspecified abdominal pain (principal); G89.29 Other chronic pain; F17.200 Nicotine dependence, unspecified, uncomplicated; J45.909 Unspecified asthma, uncomplicated
CPT/HCPCS: 96374; J2060; J2405

== ENCOUNTER 2016-08-15 17:58 | Emergency (ER) | payer MEDICAID ==
[2016-08-15 18:11] VITALS: BP 177/125; PULSE 92; RESP 14; O2SAT 97
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
== END 2016-08-15 18:54 | disposition home or self-care (01) ==
DX: Z76.0 Encounter for issue of repeat prescription (principal); F17.200 Nicotine dependence, unspecified, uncomplicated

== ENCOUNTER 2016-08-18 17:11 | Emergency (ER) | payer MEDICAID ==
[2016-08-18 17:29] VITALS: BP 122/86; PULSE 114; RESP 22; TEMP 98.2; O2SAT 97
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
== END 2016-08-18 19:35 | disposition home or self-care (01) ==
DX: Z76.0 Encounter for issue of repeat prescription (principal); F17.200 Nicotine dependence, unspecified, uncomplicated

== ENCOUNTER → 2018-03-17 | Outpatient (CLI) | payer MEDICAID | LOC: FIMAGING 11:05 | PROC: CP1F1ZZ Planar Nuclear Medicine Imaging of Bilateral Lower Extremities using Technetium 99m (Tc-99m) (ICD-10-PCS; principal; 2018-03-17) | DX: M79.661 Pain in right lower leg (principal) | CPT/HCPCS: 78315; A9503 ==

== ENCOUNTER → 2018-03-23 | Outpatient (CLI) | payer MEDICAID | LOC: FIMAGING 11:08 | DX: G89.4 Chronic pain syndrome (principal); M89.00 Algoneurodystrophy, unspecified site; G43.709 Chronic migraine without aura, not intractable, without status migrainosus; G90.511 Complex regional pain syndrome I of right upper limb; R82.5 Elevated urine levels of drugs, medicaments and biological substances; F11.20 Opioid dependence, uncomplicated | CPT/HCPCS: 78315; A9503 ==

== ENCOUNTER 2018-04-18 12:52 | Emergency (ER) | payer MEDICAID ==
[2018-04-18] MEDS ORDERED: NS 1,000 ML IV ONE (14:09)
[2018-04-18] MEDS ORDERED: ONDANSETRON 4 MG/2 ML VIAL IVP ONE ×2 (14:11→15:01)
--- NOTE | 2018-04-18 14:11 | EDPHY ---
H & P Stated Complaint: ABD PAIN N/V/D CHRONIC PAIN MANAGEMENT [facility] Time Seen by Provider: 04/18/18 14:01 HPI/ROS: CHIEF COMPLAINT: Abdominal pain, vomiting, diarrhea HISTORY OF PRESENT ILLNESS: The patient has a history of chronic pain. He presents to the ED with several days of abdominal pain, vomiting and diarrhea. The patient is currently scheduled to undergo colonoscopy for evaluation of intermittent abdominal pain and diarrhea. The patient has been tested for C diff recently and been told that he is not an active carrier. He reports he has had C diff in the past. Patient denies any fever, cough or congestion. The patient denies any respiratory symptoms. The patient is currently on chronic long-term narcotics for chronic pain. REVIEW OF SYSTEMS: A comprehensive 10 point review of systems is otherwise negative aside from elements mentioned in the history of present illness. Source: Patient Exam Limitations: No limitations - Personal History Current Tetanus Diphtheria and Acellular Pertussis (TDAP): Yes - Medical/Surgical History Hx Asthma: Yes Hx Chronic Respiratory Disease: No Hx Diabetes: No Hx Cardiac Disease: No Hx Renal Disease: No Hx Cirrhosis: No Hx Alcoholism: No Hx HIV/AIDS: No Hx Splenectomy or Spleen Trauma: No Other PMH: PMH: CDIFF,. CRPS, SEE [facility]. PSH: ORAL SURGERY. CELLULITIS. migraines. chronic regional pain syndrome - Social History Smoking Status: Current some day smoker - Physical Exam Exam: General Appearance: Alert, no distress Eyes: Pupils equal and round no pallor or injection ENT, Mouth: Mucous membranes moist, poor dentition Respiratory: There are no retractions, lungs are clear to auscultation Cardiovascular: Regular rate and rhythm Gastrointestinal: Diffuse poorly localized tenderness, normal bowel sounds Neurological: 5/5 strength noted all 4 extremities Skin: Warm and dry, no rashes Musculoskeletal: Neck is supple nontender Extremities: symmetrical, full range of motion Psychiatric: Patient is oriented X 3, there is no agitation Constitutional: Initial Vital Signs Temperature (C) 36.9 C 04/18/18 13:02 Heart Rate 103 H 04/18/18 13:02 Respiratory Rate 18 04/18/18 13:02 Blood Pressure 151/100 H 04/18/18 13:02 O2 Sat (%) 97 04/18/18 13:02 O2 Delivery Mode Room Air Allergies/Adverse Reactions: gabapentin Allergy (Mild, Verified 04/18/18 13:00) pineapple Allergy (Verified 04/18/18 13:00) Home Medications: Medication Instructions Recorded Ondansetron Odt [Zofran Odt 4 mg 4 mg PO Q4 PRN #10 tab 05/27/15 (*)] Albuterol [Proventil Inhaler HFA 1 - 2 puffs IH BID PRN 01/21/16 (*)] Eszopiclone [Lunesta] 3 mg PO HS 01/21/16 Ketamine Nasal [place] 1 - 2 spray NASAL TID PRN 01/21/16 Multivitamins [Multivitamin (*)] 1 each PO DAILY 02/03/16 HYDROmorphone HCL [Hydromorphone 2 mg PO Q6H PRN 06/24/16 HCl] Naloxone HCl [Narcan] 1 ml NS AD 06/24/16 Ketamine 07/22/16 Medical Decision Making ED Course/Re-evaluation: The patient presents the ED with abdominal pain, vomiting and diarrhea. The patient's abdominal examination is benign. The patient's vital signs are stable. The patient is noted to have normal blood studies here in the emergency department. Patient was treated with IV Zofran and Toradol. He received several L of normal saline. We attempted to obtain a diarrheal stool sample but he was unable to produce one after 4 hr in the ED. The patient will be discharged home with a prescription for an outpatient GI pathogen panel. 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 He is given a prescription for Zofran. The patient is also advised to use Imodium as needed for diarrhea. Differential Diagnosis: Differential diagnosis considered includes vomiting, dehydration, metabolic derangement, Clostridium difficile colitis, pancreatitis, peritonitis - Data Points Laboratory Results: Laboratory Results 04/18/18 14:21 04/18/18 14:21 04/18/18 04/18/18 04/18/18 15:04 14:21 14: WBC 7.22 10^3/uL 10^3/uL (3.80-9.50) RBC 5.42 10^6/uL 10^6/uL (4.40-6.38) Hgb 16.5 g/dL g/dL (13.7-17.5) Hct 46.5 % % (40.0-51.0) MCV 85.8 fL fL (81.5-99.8) MCH 30.4 pg pg (27.9-34.1) MCHC 35.5 g/dL g/dL (32.4-36.7) RDW 12.5 % % (11.5-15.2) Plt Count 284 10^3/uL 10^3/uL (150-400) MPV 9.4 fL fL (8.7-11.7) Neut % (Auto) 57.9 % % (39.3-74.2) Lymph % (Auto) 31.6 % % (15.0-45.0) [place] % (Auto) 8.3 % % (4.5-13.0) Eos % (Auto) 1.7 % % (0.6-7.6) Baso % (Auto) 0.4 % % (0.3-1.7) Nucleat RBC Rel Count 0.0 % % (0.0-0.2) Absolute Neuts (auto) 4.18 10^3/uL 10^3/uL (1.70-6.50) Absolute Lymphs (auto) 2.28 10^3/uL 10^3/uL (1.00-3.00) Absolute Monos (auto) 0.60 10^3/uL 10^3/uL (0.30-0.80) Absolute Eos (auto) 0.12 10^3/uL 10^3/uL (0.03-0.40) Absolute Basos (auto) 0.03 10^3/uL 10^3/uL (0.02-0.10) Absolute Nucleated RBC 0.00 10^3/uL 10^3/uL (0-0.01) Immature Gran % 0.1 % % (0.0-1.1) Immature Gran # 0.01 10^3/uL 10^3/uL (0.00-0.10) Sodium 137 mEq/L mEq/L (135-145) Potassium 4.5 mEq/L mEq/L (3.5-5.2) Chloride 108 mEq/L mEq/L (97-110) Carbon Dioxide 22 mEq/l mEq/l (22-31) Anion Gap 7 mEq/L mEq/L (6-14) BUN 6 mg/dL L mg/dL (7-23) Creatinine 0.7 mg/dL mg/dL (0.7-1.3) Estimated GFR > 60 Glucose 115 mg/dL H mg/dL (70-100) Calcium 9.3 mg/dL mg/dL (8.5-10.4) Total Bilirubin 0.8 mg/dL mg/dL (0.1-1.4) Conjugated Bilirubin 0.3 mg/dL mg/dL (0.0-0.5) Unconjugated Bilirubin 0.5 mg/dL mg/dL (0.0-1.1) AST 16 IU/L L IU/L (17-59) ALT 29 IU/L IU/L (21-72) Alkaline Phosphatase 89 IU/L IU/L (38-126) Total Protein 7.1 g/dL g/dL (6.3-8.2) Albumin 4.4 g/dL g/dL (3.5-5.0) Lipase 38 IU/L IU/L (23-300) Urine Color YELLOW Urine Appearance CLEAR Urine pH 7.0 (5.0-7.5) Ur Specific [place] 1.008 (1.002-1.030) Urine Protein NEGATIVE (NEGATIVE) Urine Ketones NEGATIVE (NEGATIVE) Urine Blood NEGATIVE (NEGATIVE) Urine Nitrate NEGATIVE (NEGATIVE) Urine Bilirubin NEGATIVE (NEGATIVE) Urine Urobilinogen NEGATIVE EU EU (0.2-1.0) Ur Leukocyte Esterase NEGATIVE (NEGATIVE) Urine Glucose NEGATIVE (NEGATIVE) Medications Given: Discontinued Medications Sodium Chloride (Ns) 1,000 mls @ 0 mls/hr IV EDNOW ONE; Wide Open PRN Reason: Protocol Stop: 04/18/18 14:10 Last Admin: 04/18/18 14:23 Dose: 1,000 mls Ketorolac Tromethamine (Toradol) 15 mg IVP EDNOW ONE Stop: 04/18/18 15:02 Last Admin: 04/18/18 15:02 Dose: 15 mg Ondansetron HCl (Zofran) 4 mg IVP EDNOW ONE Stop: 04/18/18 14:12 Last Admin: 04/18/18 14:24 Dose: 4 mg Ondansetron HCl (Zofran) 4 mg IVP EDNOW ONE Stop: 04/18/18 15:02 Last Admin: 04/18/18 15:02 Dose: 4 mg Departure - Departure Disposition: Home, Routine, Self-Care Clinical Impression: Vomiting, Diarrhea Condition: Good Instructions: Acute Nausea and Vomiting (ED) Additional Instructions: 1. Please bring a stool specimen back to the lab for definitive testing. 2. Follow up with Gastroenterology as scheduled. 3. Zofran as needed for nausea. 4. Imodium as needed for diarrhea.
[2018-04-18 14:35] LABS: PLATELET COUNT 284 10^3/uL (150-400)
[2018-04-18] MEDS ORDERED: ONDANSETRON 4 MG/2 ML VIAL ONE (15:00)
[2018-04-18] MEDS ORDERED: KETOROLAC 15 MG/1 ML SDV ONE (15:00)
[2018-04-18] MEDS ORDERED: KETOROLAC 15 MG/1 ML SDV IVP ONE (15:01)
[2018-04-18 16:57] VITALS: BP 118/73
== END 2018-04-18 16:58 | disposition home or self-care (01) ==
DX: R11.10 Vomiting, unspecified (principal); R19.7 Diarrhea, unspecified; R10.9 Unspecified abdominal pain; E86.9 Volume depletion, unspecified
CPT/HCPCS: 96374; J1885; J2405

== ENCOUNTER 2018-04-19 12:47 | Inpatient (IN) | payer MEDICAID ==
--- NOTE | 2018-04-19 13:22 | EDPHY ---
H & P Stated Complaint: abd pain Time Seen by Provider: 04/19/18 13:22 - Personal History Current Tetanus/Diphtheria Vaccine: Yes Current Tetanus Diphtheria and Acellular Pertussis (TDAP): Yes - Medical/Surgical History Hx Asthma: Yes Hx Chronic Respiratory Disease: No Hx Diabetes: No Hx Cardiac Disease: No Hx Renal Disease: No Hx Cirrhosis: No Hx Alcoholism: No Hx HIV/AIDS: No Hx Splenectomy or Spleen Trauma: No Other PMH: PMH: CDIFF,. CRPS, SEE [facility]. PSH: ORAL SURGERY. CELLULITIS. migraines. chronic regional pain syndrome - Social History Smoking Status: Former smoker Constitutional: Initial Vital Signs Temperature (C) 36.8 C 04/19/18 12:55 Heart Rate 107 H 04/19/18 12:55 Respiratory Rate 16 04/19/18 12:55 Blood Pressure 147/88 H 04/19/18 12:55 O2 Sat (%) 97 04/19/18 12:55 O2 Delivery Mode Room Air Allergies/Adverse Reactions: gabapentin Allergy (Mild, Verified 04/19/18 12:55) pineapple Allergy (Verified 04/19/18 12:55) Home Medications: Medication Instructions Recorded Ondansetron Odt [Zofran Odt 4 mg 4 mg PO Q4 PRN #10 tab 05/27/15 (*)] Albuterol [Proventil Inhaler HFA 1 - 2 puffs IH BID PRN 01/21/16 (*)] Eszopiclone [Lunesta] 3 mg PO HS 01/21/16 Ketamine Nasal [place] 1 - 2 spray NASAL TID PRN 01/21/16 Multivitamins [Multivitamin (*)] 1 each PO DAILY 02/03/16 HYDROmorphone HCL [Hydromorphone 2 mg PO Q6H PRN 06/24/16 HCl] Naloxone HCl [Narcan] 1 ml NS AD 06/24/16 Ketamine 07/22/16 Ondansetron Odt [Zofran Odt] 4 mg PO Q4PRN PRN #20 tab 04/18/18 Medical Decision Making - Diagnostics Imaging: Discussed imaging studies w/ call center specialist Radiologist, I viewed and interpreted images myself ED Course/Re-evaluation: CHIEF COMPLAINT: Abdominal pain HISTORY OF PRESENT ILLNESS: The patient is a 33 y/o male with a history of chronic pain complaining of abdominal pain, vomiting and diarrhea for several days. The patient is currently scheduled to undergo colonoscopy for evaluation of intermittent abdominal pain and diarrhea. The patient has been tested for C diff recently and been told that he is not an active carrier. He reports he has had C diff in the past. Due to his symptoms he presented to the emergency department yesterday and had a negative lab workup. They ordered an outpatient GI Pathogen and did not do any imaging studies. Patient denies any fever, cough or congestion. The patient denies any respiratory symptoms. The patient is currently on chronic long-term narcotics for chronic pain. REVIEW OF SYSTEMS: A comprehensive 10 system review of systems is otherwise negative aside from elements mentioned in the history of present illness and medical decision making. PHYSICAL EXAM: HR, BP, O2 Sat, RR. Temp noted General Appearance: Alert, well hydrated, appropriate, and non-toxic appearing. Head: Atraumatic without scalp tenderness or obvious injury Eyes: Pupils equal, round, reactive to light and accommodation, EOMI, no trauma , no injection. Ears: Clear bilaterally, no perforation, normal landmarks Nose: Atraumatic, no rhinorrhea, clear. Throat: There is no erythema or exudates, no lesions, normal tonsils, mucus membranes moist. Neck: Supple, 2+ carotid upstroke, nontender, no lymphadenopathy. Respiratory: No retractions, no distress, no wheezes, and no accessory muscle use. Lungs are clear to auscultation bilaterally. Cardiovascular: Regular rate and rhythm, no murmurs, rubs, or gallops. Bilateral carotid, radial, dorsalis pedis, and posterior tibial pulses intact. Good capillary refill all extremities. Gastrointestinal: Diffuse abdominal tenderness to palpation. Abdomen is soft, non-distended, no masses, no rebound, no guarding, no peritoneal signs. Musculoskeletal: Normal active ROM of all extremities, atraumatic. Neurological: Alert, appropriate, and interactive. The patient has normal DTRs and non-focal cranial nerves, motor, sensory, and cerebellar exam. Skin: No rashes, good turgor, no nodules on palpation. Past medical history: C. 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 DIFFERENTIAL DIAGNOSIS: The differential diagnosis for the patient's abdominal pain included but was not limited to appendicitis, cholecystitis, hernias, testicular torsion, gastritis, and urinary tract infection. MEDICAL DECISION MAKING: The patient is a 33 y/o male with a history of chronic pain presenting with abdominal pain, vomiting and diarrhea for several days. He had normal labs yesterday but did not have any imaging studies performed. On exam today he has diffuse abdominal tenderness. Labs and abdominopelvic CT ordered; 4mg IV Zofran administered. 1404: I spoke with the patient's who just spoke to [facility]. [facility] is trying to set up an inpatient colonoscopy for the patient. 1422: Reassessed patient, who reports that if the patient is admitted [facility] would like to perform a colonoscopy. 1450: I consulted with Dr. Petersen, radiologist, regarding patient's abdominopelvic CT. There are no acute findings on the CT. 1451:Reassessed patient and discussed laboratory and imaging findings. The patient cannot keep any fluids or foods down and will need to be admitted, which he is comfortable with. 1455: I consulted with the hospitalist service, Dr. Kemp accepts admission of this patient. 1501: I consulted with Dr. Lang, restaurant recruiter, regarding this patient. He agrees to consult and perform a scope on this patient during his admission. - Data Points Laboratory Results: 04/19/18 04/19/18 13:52 13:52 WBC Pending RBC Pending Hgb Pending Hct Pending MCV Pending MCH Pending MCHC Pending RDW Pending Plt Count Pending MPV Pending Neut % (Auto) Pending Lymph % (Auto) Pending [place] % (Auto) Pending Eos % (Auto) Pending Baso % (Auto) Pending Nucleat RBC Rel Count Pending Absolute Neuts (auto) Pending Absolute Lymphs (auto) Pending Absolute Monos (auto) Pending Absolute Eos (auto) Pending Absolute Basos (auto) Pending Absolute Nucleated RBC Pending Immature Gran % Pending Immature Gran # Pending Sodium Pending Potassium Pending Chloride Pending Carbon Dioxide Pending Anion Gap Pending BUN Pending Creatinine Pending Estimated GFR Pending Glucose Pending Calcium Pending Total Bilirubin Pending Conjugated Bilirubin Pending Unconjugated Bilirubin Pending AST Pending ALT Pending Alkaline Phosphatase Pending Total Protein Pending Albumin Pending Lipase Pending Medications Given: Discontinued Medications Sodium Chloride (Ns) 1,000 mls @ 0 mls/hr IV EDNOW ONE; Wide Open PRN Reason: Protocol Stop: 04/19/18 14:56 Last Admin: 04/19/18 15:00 Dose: 1,000 mls Sodium Chloride (Ns) 1,000 mls @ 0 mls/hr IV EDNOW ONE; Wide Open PRN Reason: Protocol Stop: 04/19/18 14:56 Last Admin: 04/19/18 15:00 Dose: 1,000 mls Ondansetron HCl (Zofran) 4 mg IVP EDNOW ONE Stop: 04/19/18 13:58 Last Admin: 04/19/18 14:01 Dose: 4 mg Departure - Departure Disposition: [facility] Inpatient Acute Clinical Impression: Chronic pain Qualifiers: Chronic pain type: other chronic pain Qualified Code(s): G89.29 - Other chronic pain Abdominal pain Qualifiers: Abdominal location: generalized Qualified Code(s): R10.84 - Generalized abdominal pain Condition: Good Instructions: Acute Abdominal Pain (ED) Additional Instructions: 1. Follow-up with a restaurant recruiter in the next week. 2. Follow-up with your primary doctor within 72 hours. 3. Return to the Emergency Department for fever, chest pain, shortness of breath , increasing pain or other worsening of condition. Referrals: Corey Moeller DO [Primary Care Provider] - As per Instructions Report Scribed for: Hung Britton Report Scribed by: Sierra Vann Date of Report: 04/19/18 Time of Report: 13:24
[2018-04-19] MEDS ORDERED: IOHEXOL 350mgI/ML (OMNIPAQUE) 150 ML BTL IV ONE (13:50)
[2018-04-19] MEDS ORDERED: ONDANSETRON 4 MG/2 ML VIAL IVP ONE (13:57)
[2018-04-19] MEDS ORDERED: ONDANSETRON 4 MG/2 ML VIAL ONE (13:58)
[2018-04-19] MEDS ORDERED: HYDROmorphONE/DILAUDID 2 MG/ML INJ IVP ONE (14:55)
[2018-04-19] MEDS ORDERED: NS 1,000 ML IV ONE ×2 (14:55)
[2018-04-19] MEDS ORDERED: KETOROLAC 30 MG/1 ML SDV IVP ONE (14:55)
[2018-04-19] MEDS ORDERED: HYDROmorphONE/DILAUDID 1 MG/ML INJ ONE (14:58)
[2018-04-19] MEDS ORDERED: PROMETHAZINE HCL 25 MG/ML INJ ONE (15:02)
[2018-04-19] MEDS ORDERED: PROMETHAZINE HCL 25 MG/ML INJ IVP ONE (15:03)
[2018-04-19 15:06] LABS: PLATELET COUNT 316 10^3/uL (150-400)
[2018-04-19] MEDS ORDERED: ACETAMINOPHEN 325 MG TAB PO PRN (15:32)
[2018-04-19] MEDS ORDERED: PROMETHAZINE HCL 25 MG/ML INJ IVP PRN (15:32)
[2018-04-19 15:56] LABS: INR 0.89 (0.83-1.16); PROTIME(PATIENT) 12.3 SEC (12.0-15.0)
[2018-04-19] MEDS ORDERED: KETAMINE EACHNARE PRN (16:09)
[2018-04-19] MEDS ORDERED: ALBUTEROL 60 PUFFS/8 GM MDI IH PRN (16:09)
[2018-04-19] MEDS ORDERED: NALOXONE NS SCH (16:15)
--- NOTE | 2018-04-19 16:29 | PDGENHP ---
<Prabha Benavidez - Last Filed: 04/19/18 16:50> History and Physical - Chief Complaint Abdominal pain, vomiting, diarrhea - History of Present Illness This is a 33 y/o male with history of chronic regional pain syndrome and opioid dependent presents with diffuse abdominal pain, vomiting and diarrhea since Wednesday. He presented to the emergency room yesterday and work-up was negative for any findings. He was unable to reproduce stool. He was discharged and it was recommended he follow up outpatient with GI for a further investigative work up to his acute on chronic abdominal pain, vomiting, and diarrhea. He presented to the ED today for continuation of his symptoms with no relief. He reports he has been tested for C-Diff (which he has had in the past) and was told it has colonized so it may appear he has C-diff when he doesn 't. UA yesterday was unremarkable. Today's lab work unremarkable. Abdominal/ pelvis w/contrast is unremarkable. He denies chest pains, palpitations, SOB. He is being admitted for further diagnostic work-up and monitoring. Past Medical History 1. CRPS ([facility]); ~10 years ago, had 16 teeth removed which began his chronic pain. The pain has now spread to his right leg. On multiple opioids 2. Hx of C-Diff 3. Cellulitis 4. Migraines 5. IBS Past Surgical History 1. Oral surgery Social 1. , lives in [place] 2. 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 3. Uses nicotine patch. Does not smoke cigarettes. Denies illicit or alcohol use. History Information - Allergies/Home Medication List Allergies/Adverse Reactions: gabapentin Allergy (Mild, Verified 04/19/18 12:55) pineapple Allergy (Verified 04/19/18 12:55) Home Medications: Ketamine Nasal [place] 1 - 2 spray [place] QID PRN 01/21/16 [Last Taken 02/01/16] Multivitamins [Multivitamin (*)] 1 each PO DAILY 02/03/16 [Last Taken 02/01/16] Naloxone HCl [Narcan] 1 ml NS AD 06/24/16 [Last Taken Unknown] Albuterol [Proventil Inhaler HFA (*)] 1 - 2 puffs IH BID PRN 04/19/18 [Last Taken Unknown] Cyclobenzaprine [Flexeril 10 MG (*)] 10 mg PO BID@12,04/19/18 [Last Taken Unknown] Ermvg Pen 70mg 70 mg SQ Q30D 04/19/18 [Last Taken 03/18/18] Eszopiclone [Lunesta] 2 mg PO HS 04/19/18 [Last Taken Unknown] HYDROmorphone HCL [Dilaudid] 4 mg PO 12,17 04/19/18 [Last Taken Unknown] HYDROmorphone HCL [Dilaudid] 8 mg PO ,04/19/18 [Last Taken Unknown] Lidocaine 2% Viscous 5 ml PO BID PRN 04/19/18 [Last Taken Unknown] morphINE SR [MS Contin/Oramorph 60 mg (*)] 60 mg PO DAILY@04/19/18 [Last Taken Unknown] morphINE SR [MS Contin/Oramorph SR 30 mg (*)] 30 mg PO DAILY AT 6AM 04/19/18 [ Last Taken Unknown] morphINE SR [Ms Contin/Oramorph 15 mg (*)] 15 mg PO DAILY06 04/19/18 [Last Taken Unknown] I have personally reviewed and updated: family history, medical history, social history, surgical history Past Medical History: See HPI list - Surgical History Additional surgical history: See HPI list - Family History Positive for: cancer - Social History Smoking Status: Former smoker Alcohol Use: None Drug Use: None Review of Systems Review of Systems: ROS: 10pt was reviewed & negative except for what was stated in HPI & below Constitutional: Reports: malaise EENMT: Reports: no symptoms Cardiac: Reports: no symptoms Respiratory: Reports: no symptoms Gastrointestinal: Reports: vomitting, abdominal pain, diarrhea, nausea Genitourinary: Reports: no symptoms Muscolosketal: Reports: no symptoms Skin: Reports: no symptoms Neurological: Reports: no symptoms Hematologic/Lymphatic: Reports: no symptoms Immunologic/Allergy: Reports: other (gabapentin, pineapple) Physical Exam Physical Exam: Lab data and imaging were reviewed. All were unremarkable. Temp Pulse Resp BP Pulse Ox 36.8 C 96 18 142/97 H 96 04/19/18 12:55 04/19/18 15:30 04/19/18 15:30 04/19/18 15:30 04/19/18 15:30 Constitutional: chronically ill appearing, uncomfortable Eyes: PERRL, anicteric sclera, EOMI Ears, Nose, Mouth, Throat: poor dentition, dry mucous membranes Cardiovascular: regular rate and rhythym, no murmur, rub, or gallop, tachycardia Peripheral Pulses: 2+: dorsalis-pedis (R) (Radial 2+), dorsalis-pedis (L) ( Radial 2+) Respiratory: no respiratory distress, no rales or rhonchi, clear to auscultation Gastrointestinal: normoactive bowel sounds, no palpable masses, tenderness Genitourinary: no bladder fullness, no bladder tenderness Skin: warm, normal color, no rashes or abrasions, no fluctuance, no induration, No mottled Musculoskeletal: full muscle strength, no muscle tenderness, normal joint ROM, no joint effusions Neurologic: AAOx3, sensation intact bilaterally, CN II-XII Intact Psychiatric: not encephalopathic, thought process linear, anxious Lymph, Heme, Immunologic: no cervical LAD, no supraclavicular LAD Lab Data & Imaging Review 04/19/18 13:52 04/19/18 13:52 WBC 7.09 10^3/uL (3.80-9.50) 04/19/18 13:52 RBC 5.61 10^6/uL (4.40-6.38) 04/19/18 13:52 Hgb 16.8 g/dL (13.7-17.5) 04/19/18 13:52 Hct 49.1 % (40.0-51.0) 04/19/18 13:52 MCV 87.5 fL (81.5-99.8) 04/19/18 13:52 MCH 29.9 pg (27.9-34.1) 04/19/18 13:52 MCHC 34.2 g/dL (32.4-36.7) 04/19/18 13:52 RDW 12.2 % (11.5-15.2) 04/19/18 13:52 Plt Count 316 10^3/uL (150-400) 04/19/18 13:52 MPV 9.7 fL (8.7-11.7) 04/19/18 13:52 Neut % (Auto) 65.6 % (39.3-74.2) 04/19/18 13:52 Lymph % (Auto) 24.0 % (15.0-45.0) 04/19/18 13:52 [place] % (Auto) 8.7 % (4.5-13.0) 04/19/18 13:52 Eos % (Auto) 1.0 % (0.6-7.6) 04/19/18 13:52 Baso % (Auto) 0.4 % (0.3-1.7) 04/19/18 13:52 Nucleat RBC Rel Count 0.0 % (0.0-0.2) 04/19/18 13:52 Absolute Neuts (auto) 4.65 10^3/uL (1.70-6.50) 04/19/18 13:52 Absolute Lymphs (auto) 1.70 10^3/uL (1.00-3.00) 04/19/18 13:52 Absolute Monos (auto) 0.62 10^3/uL (0.30-0.80) 04/19/18 13:52 Absolute Eos (auto) 0.07 10^3/uL (0.03-0.40) 04/19/18 13:52 Absolute Basos (auto) 0.03 10^3/uL (0.02-0.10) 04/19/18 13:52 Absolute Nucleated RBC 0.00 10^3/uL (0-0.01) 04/19/18 13:52 Immature Gran % 0.3 % (0.0-1.1) 04/19/18 13:52 Immature Gran # 0.02 10^3/uL (0.00-0.10) 04/19/18 13:52 PT 12.3 SEC (12.0-15.0) 04/19/18 14:31 INR 0.89 (0.83-1.16) 04/19/18 14:31 Sodium 137 mEq/L (135-145) 04/19/18 13:52 Potassium 4.4 mEq/L (3.5-5.2) 04/19/18 13:52 Chloride 107 mEq/L (97-110) 04/19/18 13:52 Carbon Dioxide 22 mEq/l (22-31) 04/19/18 13:52 Anion Gap 8 mEq/L (6-14) 04/19/18 13:52 BUN 8 mg/dL (7-23) 04/19/18 13:52 Creatinine 0.7 mg/dL (0.7-1.3) 04/19/18 13:52 Estimated GFR > 60 04/19/18 13:52 Glucose 122 mg/dL (70-100) H 04/19/18 13:52 Calcium 9.7 mg/dL (8.5-10.4) 04/19/18 13:52 Total Bilirubin 0.7 mg/dL (0.1-1.4) 04/19/18 13:52 Conjugated Bilirubin 0.4 mg/dL (0.0-0.5) 04/19/18 13:52 Unconjugated Bilirubin 0.3 mg/dL (0.0-1.1) 04/19/18 13:52 AST 19 IU/L (17-59) 04/19/18 13:52 ALT 35 IU/L (21-72) 04/19/18 13:52 Alkaline Phosphatase 88 IU/L (38-126) 04/19/18 13:52 Total Protein 7.6 g/dL (6.3-8.2) 04/19/18 13:52 Albumin 4.7 g/dL (3.5-5.0) 04/19/18 13:52 Lipase 77 IU/L (23-300) 04/19/18 13:52 Assessment & Plan Plan: This is a 33 y/o male with history of CRPS with chronic opioid use presenting with acute on chronic abdominal pain, vomiting and diarrhea. 1. Acute on chronic abdominal pain -Consulted GI. Dr. Lang aware and will perform scope tomorrow morning. -[place] tonight to prep for tomorrow -GI panel PCR pending if he is able to produce stool -Received IVP Dilaudid and Toradol in ED which he reports helped a little 2. Nausea -Received IVP Zofran and Phenergan in ED; continue these PRN -Encourage clear liquid diet -IVF x 3 bags 3. Opioid dependency: Per pt, has not been able to take any of his home medications because of the nausea and vomiting. -Monitor opiate withdrawal -On Flexeril, Morphine SR, Dilaudid; continue these 4. Tobacco cessation: Counseled pt on eliminating nicotine completely for his daily intake. He is using a nicotine patch and attempting to stop use. Diet: Regular, NPO at midnight tonight VTE ppx: SCDs Code: Full Dispo: Admit to obs <Keith Kemp - Last Filed: 04/19/18 21:29> History and Physical - History of Present Illness Review of Systems Review of Systems: Physical Exam Physical Exam: Temp Pulse Resp BP Pulse Ox 37.1 C 88 19 143/98 H 92 04/19/18 16:36 04/19/18 16:36 04/19/18 16:36 04/19/18 16:36 04/19/18 16:36 Constitutional: chronically ill appearing, other (Poor dentition) Eyes: PERRL, anicteric sclera, EOMI Ears, Nose, Mouth, Throat: moist mucous membranes, hearing normal, ears appear normal, no oral mucosal ulcers Cardiovascular: regular rate and rhythym, no murmur, rub, or gallop, No edema Gastrointestinal: normoactive bowel sounds, soft, non-tender abdomen, no palpable masses, No guarding, No rebound Skin: warm, normal color, no rashes or abrasions, no fluctuance, no induration, No mottled Neurologic: AAOx3, sensation intact bilaterally, CN II-XII Intact, No facial droop Psychiatric: anxious Lab Data & Imaging Review 04/19/18 13:52 04/19/18 13:52 WBC 7.09 10^3/uL (3.80-9.50) 04/19/18 13:52 RBC 5.61 10^6/uL (4.40-6.38) 04/19/18 13:52 Hgb 16.8 g/dL (13.7-17.5) 04/19/18 13:52 Hct 49.1 % (40.0-51.0) 04/19/18 13:52 MCV 87.5 fL (81.5-99.8) 04/19/18 13:52 MCH 29.9 pg (27.9-34.1) 04/19/18 13:52 MCHC 34.2 g/dL (32.4-36.7) 04/19/18 13:52 RDW 12.2 % (11.5-15.2) 04/19/18 13:52 Plt Count 316 10^3/uL (150-400) 04/19/18 13:52 MPV 9.7 fL (8.7-11.7) 04/19/18 13:52 Neut % (Auto) 65.6 % (39.3-74.2) 04/19/18 13:52 Lymph % (Auto) 24.0 % (15.0-45.0) 04/19/18 13:52 [place] % (Auto) 8.7 % (4.5-13.0) 04/19/18 13:52 Eos % (Auto) 1.0 % (0.6-7.6) 04/19/18 13:52 Baso % (Auto) 0.4 % (0.3-1.7) 04/19/18 13:52 Nucleat RBC Rel Count 0.0 % (0.0-0.2) 04/19/18 13:52 Absolute Neuts (auto) 4.65 10^3/uL (1.70-6.50) 04/19/18 13:52 Absolute Lymphs (auto) 1.70 10^3/uL (1.00-3.00) 04/19/18 13:52 Absolute Monos (auto) 0.62 10^3/uL (0.30-0.80) 04/19/18 13:52 Absolute Eos (auto) 0.07 10^3/uL (0.03-0.40) 04/19/18 13:52 Absolute Basos (auto) 0.03 10^3/uL (0.02-0.10) 04/19/18 13:52 Absolute Nucleated RBC 0.00 10^3/uL (0-0.01) 04/19/18 13:52 Immature Gran % 0.3 % (0.0-1.1) 04/19/18 13:52 Immature Gran # 0.02 10^3/uL (0.00-0.10) 04/19/18 13:52 PT 12.3 SEC (12.0-15.0) 04/19/18 14:31 INR 0.89 (0.83-1.16) 04/19/18 14:31 Sodium 137 mEq/L (135-145) 04/19/18 13:52 Potassium 4.4 mEq/L (3.5-5.2) 04/19/18 13:52 Chloride 107 mEq/L (97-110) 04/19/18 13:52 Carbon Dioxide 22 mEq/l (22-31) 04/19/18 13:52 Anion Gap 8 mEq/L (6-14) 04/19/18 13:52 BUN 8 mg/dL (7-23) 04/19/18 13:52 Creatinine 0.7 mg/dL (0.7-1.3) 04/19/18 13:52 Estimated GFR > 60 04/19/18 13:52 Glucose 122 mg/dL (70-100) H 04/19/18 13:52 Calcium 9.7 mg/dL (8.5-10.4) 04/19/18 13:52 Total Bilirubin 0.7 mg/dL (0.1-1.4) 04/19/18 13:52 Conjugated Bilirubin 0.4 mg/dL (0.0-0.5) 04/19/18 13:52 Unconjugated Bilirubin 0.3 mg/dL (0.0-1.1) 04/19/18 13:52 AST 19 IU/L (17-59) 04/19/18 13:52 ALT 35 IU/L (21-72) 04/19/18 13:52 Alkaline Phosphatase 88 IU/L (38-126) 04/19/18 13:52 Total Protein 7.6 g/dL (6.3-8.2) 04/19/18 13:52 Albumin 4.7 g/dL (3.5-5.0) 04/19/18 13:52 Lipase 77 IU/L (23-300) 04/19/18 13:52 Assessment & Plan Assessment: Abdominal pain (Acute) Chronic pain (Acute) Plan: Patient was seen and examined at bedside. I agree with the assessment and plan as detailed above by an FLOORING GRADER [place] Agree with sending stool for PCR testing given his history of C diff in reports of diarrhea
[2018-04-19] MEDS ORDERED: ZOLPIDEM TARTRATE 5 MG TAB PO PRN (16:42)
[2018-04-19] MEDS ORDERED: LIDOCAINE 2% VISCOUS 15 ML UDCUP PO PRN (17:00)
[2018-04-19] MEDS: ONDANSETRON 4 MG/2 ML VIAL IVP PRN (17:41)
[2018-04-19] MEDS: NS 1,000 ML IV SCH (17:41)
[2018-04-19] MEDS: HYDROmorphONE/DILAUDID 4 MG TAB PO SCH ×2 (17:42→22:22)
[2018-04-19] MEDS ORDERED: PEG 3350/NA SULF,BICARB,CL/KCL (GAVILYTE-G) 4000 ML BTL PO ONE (18:00)
[2018-04-19] MEDS: ONDANSETRON DISINTEGRATING 4 MG TAB PO PRN (22:22)
[2018-04-19] MEDS: morphINE SR 60 MG TAB PO SCH (22:24)
[2018-04-19] MEDS: CYCLOBENZAPRINE 10 MG TAB PO SCH (22:24)
[2018-04-19] MEDS: NICOTINE 21 MG/24 HR PATCH TD SCH (23:31)
[2018-04-20] MEDS: NS 1,000 ML IV SCH ×2 (03:34→11:14)
--- NOTE | 2018-04-20 04:58 | GCON ---
[f rep st] CONSULTATION DATE OF CONSULTATION: 04/19/2018 REQUESTING PHYSICIAN: Prabha Benavidez NP REASON FOR CONSULTATION: Abdominal pain, nausea, vomiting, and diarrhea. HISTORY OF PRESENT ILLNESS: Corey is a 33-year-old gentleman with chronic regional pain syndrome requiring chronic opiates, as well as a history of recurrent C difficile colitis (last episode approximately 1 year ago), who was [facility] through the emergency room after a 4-day history of nausea, vomiting, epigastric and right upper quadrant dull pain, and frequent watery bowel movements. He has denied any blood in his stool or black , tarry stools. He has had no recent antibiotic use. He has had no prior endoscopic evaluations. HOME MEDICATIONS: Ketamine nasal spray 1-2 puffs q.i.d. p.r.n., multivitamin 1 daily, albuterol inhaler 1-2 puffs inhaled b.i.d. p.r.n. shortness of breath, Flexeril 10 mg p.o. b.i.d., Lunesta 2 mg p.o. q.h.s., OxyContin 4 mg p.o. alternating with 8 mg p.o. q.6, viscous lidocaine 5 mL p.o. b.i.d. p.r.n., MS Contin 60 mg p.o. daily. ALLERGIES: Gabapentin and pineapple. PAST MEDICAL HISTORY: 1. CRPS managed at the [facility], presenting with right facial and right-sided body pains requiring multiple opioids for control of pain. 2. History of recurrent C difficile colitis. 3. History of cellulitis. 4. Migraines. 5. IBS. 6. Reactive airway disease. PAST SURGICAL HISTORY: Oral surgery with removal of 6 teeth. 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 PAST SURGICAL HISTORY: Unremarkable. FAMILY HISTORY: Negative for peptic ulcer or inflammatory bowel disease. REVIEW OF SYSTEMS: Otherwise negative for comprehensive review of systems on my examination today. PHYSICAL EXAMINATION: VITALS: Temperature is 37.1, pulse 113, regular, blood pressure 143/98, respiratory rate 19, O2 saturation 92% on room air. GENERAL: A well-developed, well-nourished gentleman appearing in moderate distress, complaining of pain. INTEGUMENT: Clear. HEENT: Head atraumatic, normocephalic. Pupils equal, round, reactive to light. EOMs are intact. Sclerae nonicteric. Mucous membranes moist. Dentition fair. NECK: Supple. Trachea midline. LYMPHATICS: No palpable cervical or axillary adenopathy. PULMONARY: Lungs clear to percussion and auscultation. CARDIOVASCULAR: Rapid rate. Normal S1, S2, without murmur. Peripheral pulses strong bilaterally. No pedal edema. GASTROINTESTINAL: Abdomen supple. Positive bowel sounds. There is tenderness in the epigastrium and right upper quadrant to deep palpation without palpable mass or rebound. EXTREMITIES: Without deformity. NEURO: Patient is alert and oriented x3. There are no focal neurologic deficits. LABS: White count 7.09, hemoglobin 16.8, hematocrit 49.1, platelets 316,000. ProTime 12.3, INR 0.89. Electrolytes normal. BUN 8, creatinine 0.7, calcium 9.7, glucose 122. LFTs normal. Albumin 4.7, lipase 77. CT scan of the abdomen showed left-sided diverticulosis, otherwise normal. IMPRESSION: 1. 4-day history of nausea, vomiting, epigastric and right upper quadrant abdominal pain, and loose stools, rule out peptic ulcer, rule out Clostridium difficile colitis. 2. Chronic regional pain syndrome, on chronic opioid therapy. 3. History of Clostridium difficile. 4. Irritable bowel syndrome. 5. Reactive airway disease. RECOMMENDATIONS: 1. Colyte prep. 2. Isolation for C difficile and recheck stool samples. 3. Total colonoscopy and esophagogastroduodenoscopy in the a.m.; this will need to be done with propofol anesthesia due to the patient's chronic narcotic use. /[id number]/MODL MTDD
[2018-04-20 05:27] LABS: PLATELET COUNT 264 10^3/uL (150-400)
[2018-04-20] MEDS: HYDROmorphONE/DILAUDID 4 MG TAB PO SCH ×4 (06:22→21:18)
[2018-04-20] MEDS: morphINE SR 15 MG TAB PO SCH (06:23)
[2018-04-20] MEDS: morphINE SR 30 MG TAB PO SCH (06:24)
--- NOTE | 2018-04-20 08:54 | PDANEPAE ---
ANE History of Present Illness abdominal pain, n/v ANE Past Medical History - Cardiovascular History Hx Hypertension: No Hx Arrhythmias: No Hx Chest Pain: No Hx Coronary Artery / Peripheral Vascular Disease: No Hx CHF / Valvular Disease: No Hx Palpitations: No - Pulmonary History Hx COPD: No Hx Asthma/Reactive Airway Disease: No Hx Recent Upper Respiratory Infection: No Hx Oxygen in Use at Home: No Hx Sleep Apnea: No Sleep Apnea Screening Result - Last Documented: Negative - Endocrine History Hx Diabetes: No Hypothyroid: No Hyperthyroid: No Obesity: no - Renal History Hx Renal Disorders: No - Liver History Hx Hepatic Disorders: No - Cancer History Hx Cancer: No - Congenital Disorder History Hx Congenital Disorders: No - GI History GERD: no Hx Gastrointestinal Disorders: Yes Gastrointestinal History Comment: IBS. N/V ABD PAIN - Chronic Pain History Chronic Pain: Yes (CRPS) ANE Review of Systems Review of systems is: negative Review of Systems: ANE Patient History - Allergies Allergies/Adverse Reactions: gabapentin Allergy (Mild, Verified 04/19/18 12:55) pineapple Allergy (Verified 04/19/18 12:55) - Home Medications Home medications: home medication list seen and reviewed Home Medications: Ketamine Nasal [place] 1 - 2 spray EACHNARE QID PRN 01/21/16 [Last Taken 02/01/16] Multivitamins [Multivitamin (*)] 1 each PO DAILY 02/03/16 [Last Taken 02/01/16] Naloxone HCl [Narcan] 1 ml NS AD 06/24/16 [Last Taken Unknown] Albuterol [Proventil Inhaler HFA (*)] 1 - 2 puffs IH BID PRN 04/19/18 [Last Taken Unknown] Cyclobenzaprine [Flexeril 10 MG (*)] 10 mg PO BID@04/19/18 [Last Taken Unknown] Ermvg Pen 70mg 70 mg SQ Q30D 04/19/18 [Last Taken 03/18/18] Eszopiclone [Lunesta] 2 mg PO HS 04/19/18 [Last Taken Unknown] HYDROmorphone HCL [Dilaudid] 4 mg PO 12,17 04/19/18 [Last Taken Unknown] HYDROmorphone HCL [Dilaudid] 8 mg PO ,04/19/18 [Last Taken Unknown] Lidocaine 2% Viscous 5 ml PO BID PRN 04/19/18 [Last Taken Unknown] morphINE SR [MS Contin/Oramorph 60 mg (*)] 60 mg PO DAILY@22 04/19/18 [Last Taken Unknown] morphINE SR [MS Contin/Oramorph SR 30 mg (*)] 30 mg PO DAILY AT 6AM 04/19/18 [ Last Taken Unknown] morphINE SR [Ms Contin/Oramorph 15 mg (*)] 15 mg PO DAILY06 04/19/18 [Last Taken Unknown] - NPO status NPO Status: no food or drink >8 hours NPO Since - Liquids (Date): 04/20/18 NPO Since - Liquids (Time): 00:00 NPO Since - Solids (Date): 04/20/18 NPO Since - Solids (Time): 00:00 - Anes Hx Anes Hx: no prior problems - Smoking Hx Smoking Status: Former smoker - Alcohol Use Alcohol Use: None - Family Anes Hx Family Anes Hx: none ANE Labs/Vital Signs - Labs Result Diagrams: 04/20/18 03:15 04/20/18 03:15 - Vital Signs Blood Pressure: 107/76 Heart Rate: 81 Respiratory Rate: 16 O2 Sat (%): 91 Height: 187.96 cm Weight: 88.45 kg ANE Physical Exam - Airway Neck exam: FROM Mallampati Score: Class 2 Mouth exam: normal dental/mouth exam - Pulmonary Pulmonary: no respiratory distress, clear to auscultation - Cardiovascular Cardiovascular: regular rate and rhythym, no murmur, rub, or gallop - ASA Status ASA Status: III ANE Anesthesia Plan Anesthesia Plan: GA with mask Total IV Anesthesia: Yes
[2018-04-20] MEDS ORDERED: LIDOCAINE 2% 5 ML SDV ONE (10:33)
[2018-04-20] MEDS ORDERED: PROPOFOL 200 MG/20 ML VIAL ONE (10:33)
[2018-04-20] MEDS ORDERED: PEG 3350/NA SULF,BICARB,CL/KCL (GAVILYTE-G) 4000 ML BTL PO ONE (10:42)
--- NOTE | 2018-04-20 10:45 | SOAPPROG ---
SOAP Progress Note Assessment/Plan: Assessment: 1. RUQ/Epigastric abdominal pain; unchanged. 2. Diarrhea; resolved; No results with Colyte prep last night therefore endoscopies cancelled today. Plan: 1. Clears po. 2. Repeat Colyte prep today. 3. EGD/Colon late today or early tomorrow am depending on progress of oral prep. Dawit Lang MD [phone] 04/20/18 10:42 Subjective: CC: Continued abdominal pain. Took whole Colyte prep without any results. EGD/Colon cancelled today. Objective: Vital Signs Temp Pulse Resp BP Pulse Ox 36.2 C 81 16 107/76 91 L 04/20/18 09:43 04/20/18 10:29 04/20/18 10:29 04/20/18 10:29 04/20/18 10:29 Laboratory Results 04/20/18 03:15 04/20/18 03:15 04/19/18 04/20/18 04/21/18 05:59 05:59 05:59 Intake Total 2480 Output Total 350 Balance 2130 PT 12.3 SEC (12.0-15.0) 04/19/18 14:31 INR 0.89 (0.83-1.16) 04/19/18 14:31 Physical Exam - Physical Exam General Appearance: alert, no apparent distress Respiratory: lungs clear Cardiac/Chest: regular rate, rhythm Abdomen: normal bowel sounds, soft (tender in RUQ/Epigastrium) Skin: warm/dry Neuro/Psych: alert, normal mood/affect, oriented x 3 ICD10 Worksheet Patient Problems: Problems Problem Status Onset Chronic pain Acute C. difficile colitis Acute Chronic abdominal pain Acute Nausea & vomiting Acute Abdominal pain Acute Opiate dependence, continuous Acute C. difficile diarrhea Acute 06/24/16 Acute colitis Acute Nausea & vomiting Acute Diarrhea Acute
[2018-04-20] MEDS: ONDANSETRON 4 MG/2 ML VIAL IVP PRN (11:14)
[2018-04-20] MEDS: CYCLOBENZAPRINE 10 MG TAB PO SCH ×2 (11:56→21:22)
--- NOTE | 2018-04-20 13:32 | HOSPPROG ---
Hospitalist Progress Note Assessment/Plan: This is a 33 y/o male with history of CRPS with chronic opioid use presenting with acute on chronic abdominal pain, vomiting and diarrhea. Acute on chronic abdominal pain - discussed with Dr. Lang. May have a fecal impaction. Also consider opioid withdrawal. Lipase nl, LFT's nl. -repeat golytely prep for c-scope / EGD in am, ineffective prep overnight -pain control Opioid dependency: In setting of CRPS. Missed his home meds due to N/V, suspect some degree of opioid withdrawal on arrival -Cont home Morphine SR, Dilaudid Tobacco use disorder: nicoderm patch, pt was counselled on cessation Diet: Regular, NPO at midnight tonight VTE ppx: SCDs Code: Full Dispo: change to inpt for ongoing evaluation of abdominal pain Subjective: Pt feels better. No N/V. Still some abdominal pain, but improved. No diarrhea. Little nausea. Currently taking Golytely prep. Objective: Vital Signs Temp Pulse Resp BP Pulse Ox 36.6 C 78 16 140/88 H 93 04/20/18 11:00 04/20/18 11:00 04/20/18 11:00 04/20/18 11:00 04/20/18 11:00 Laboratory Results 04/20/18 03:15 04/20/18 03:15 04/19/18 04/20/18 04/21/18 05:59 05:59 05:59 Intake Total 2480 Output Total 350 Balance 2130 PT 12.3 SEC (12.0-15.0) 04/19/18 14:31 INR 0.89 (0.83-1.16) 04/19/18 14:31 - Physical Exam Constitutional: no apparent distress Eyes: PERRL Ears, Nose, Mouth, Throat: moist mucous membranes Cardiovascular: regular rate and rhythym Respiratory: no respiratory distress, clear to auscultation Gastrointestinal: normoactive bowel sounds, other (soft, nd, mild diffuse TTP, no r/r/g) Skin: warm Musculoskeletal: full muscle strength Neurologic: AAOx3 Psychiatric: interacting appropriately ICD10 Worksheet Patient Problems: Problems Problem Status Onset Abdominal pain Acute Chronic pain Acute Acute colitis Acute C. difficile colitis Acute C. difficile diarrhea Acute 06/24/16 Chronic abdominal pain Acute Diarrhea Acute Nausea & vomiting Acute Nausea & vomiting Acute Opiate dependence, continuous Acute
--- NOTE | 2018-04-20 13:56 | PDMN ---
Medical Necessity Medical necessity: Pt meets IP criteria as of 04/20/2018 per and ROBERT M-05 ( Abdominal pain); los > 2 mn for ongoing tx and management of abdominal pain in the setting of chronic opioid use; requiring further workup including colonoscopy, first bowel prep unsuccessful therefore requiring another midnight for additional bowel prep as well as IVF, pain and nausea control.
--- NOTE | 2018-04-20 14:24 | ASMTCMCOM ---
CM Note CM Note Notes: Pt is 33 yo M presents with abdominal pain. Pt has history of chronic pain and opiod dependency. CM submit [facility] referral for ongoing case management in the community. Pt lives with his . CM to follow. Plan: TBD Date Signed: 04/20/2018 02:24 PM Electronically Signed By:CHINYERE Evangelista
[2018-04-20] MEDS: NICOTINE 21 MG/24 HR PATCH TD SCH (21:17)
[2018-04-20] MEDS: morphINE SR 60 MG TAB PO SCH (21:18)
[2018-04-20] MEDS: ONDANSETRON DISINTEGRATING 4 MG TAB PO PRN (21:21)
[2018-04-21] MEDS: HYDROmorphONE/DILAUDID 4 MG TAB PO SCH ×4 (06:06→22:02)
[2018-04-21] MEDS: morphINE SR 30 MG TAB PO SCH (06:07)
[2018-04-21] MEDS: morphINE SR 15 MG TAB PO SCH (06:07)
[2018-04-21] MEDS: CYCLOBENZAPRINE 10 MG TAB PO SCH ×2 (13:28→22:01)
[2018-04-21] MEDS ORDERED: PROPOFOL 200 MG/20 ML VIAL ONE ×8 (13:39→14:40)
[2018-04-21] MEDS ORDERED: LIDOCAINE 2% 5 ML SDV ONE (13:39)
--- NOTE | 2018-04-21 14:46 | GIREPORT ---
[facility] - Endoscopy Department Patient Name: Corey Crowley Procedure Date: 04/21/2018 1:04 PM Patient Type: Inpatient Attending MD/ ER Physician: Dawit Lang MD Procedure: Upper GI endoscopy Indications: Epigastric abdominal pain, Abdominal pain in the right upper quadrant, Diarrhea Providers: Dawit Lang MD Medicines: General Anesthesia Complications: No immediate complications. Description of Procedure: After obtaining informed consent, the endoscope was passed under direct vision. Throughout the procedure, the patient's blood pressure, pulse, and oxygen saturations were monitored continuously. The Endoscope was intro duced through the mouth, and advanced to the third part of duodenum. The uppe r GI endoscopy was accomplished without difficulty. The patient tolerated th e procedure well. Findings: The examined esophagus was normal. The entire examined stomach was normal. Biopsies were taken with a cold forceps for histology. Diffuse moderate inflammation characterized by erythema and granularity was found in the duodenal bulb. The second portion of the duodenum and third portion of the duodenum we re normal. Biopsies for histology were taken with a cold forceps for evalu ation of celiac disease. Estimated Blood Loss: Estimated blood loss: none. Post Op Diagnosis: - Normal esophagus. - Normal stomach. Biopsied. - Duodenitis. - Normal second portion of the duodenum and third portion of the duoden um. Biopsied. Recommendation: - Perform a colonoscopy today. - Await pathology results. Attending Participation: I personally performed the entire procedure. Dawit Lang MD Dawit Lang MD 04/21/2018 2:46:30 PM This report has been signed electronicallyJodesi Lang MD Number of Addenda: 0 Note Initiated On: 04/21/2018 1:04 PM [email or web address]
--- NOTE | 2018-04-21 14:50 | GIREPORT ---
[facility] - Endoscopy Department Patient Name: Corey Crowley Procedure Date: 04/21/2018 12:55 PM Patient Type: Inpatient Attending MD/ ER Physician: Dawit Lang MD Procedure: Colonoscopy Indications: Epigastric abdominal pain, Abdominal pain in the right upper quadrant, Chronic diarrhea Providers: Dawit Lang MD Medicines: General Anesthesia Complications: No immediate complications. Description of Procedure: After obtaining informed consent, the scope was passed under direct vis ion. Throughout the procedure, the patient's blood pressure, pulse, and oxyg en saturations were monitored continuously. The Colonoscope with irrigatio n channel was introduced through the anus and advanced to the terminal il eum. The colonoscopy was performed without difficulty. The patient tolerated the procedure well. The quality of the bowel preparation was adequate. Findings: The terminal ileum appeared normal. The colon (entire examined portion) appeared normal. Biopsies for histo logy were taken with a cold forceps from the entire colon for evaluation of microscopic colitis. The perianal and digital rectal examinations were normal. Estimated Blood Loss: Estimated blood loss: none. Post Op Diagnosis: - The examined portion of the ileum was normal. - The entire examined colon is normal. Biopsied. Recommendation: - Return patient to [facility] for [facility] care. - Resume regular diet today. - Miralax 1 capful (17 grams) in 8 ounces of water PO BID indefinitely. - Await pathology results. - Repeat colonoscopy at age 48 for screening purposes. Attending Participation: I personally performed the entire procedure. Dawit Lang MD Dawit Lang MD 04/21/2018 2:49:46 PM This report has been signed electronicallyJodesi Lang MD Number of Addenda: 0 Note Initiated On: 04/21/2018 12:55 PM Total Procedure Duration Time 0 hours 20 minutes 7 seconds [email or web address]}
[2018-04-21] MEDS ORDERED: NALOXONE HCL 0.4 MG/ML INJ IVP PRN (14:58)
[2018-04-21] MEDS ORDERED: PROMETHAZINE HCL 25 MG/ML INJ IVP PRN (14:58)
[2018-04-21] MEDS ORDERED: ONDANSETRON 4 MG/2 ML VIAL IVP PRN (14:58)
[2018-04-21] MEDS ORDERED: fentaNYL 100 MCG/2 ML INJ IVP PRN (14:58)
[2018-04-21] MEDS ORDERED: NS 500 ML IV PRN (14:58)
--- NOTE | 2018-04-21 14:58 | POSTANESTH ---
Post Anesthetic Evaluation Cardiovascular Status: Normal, Stable Respiratory Status: Normal, Stable Level of Consciousness/Mental Status: Can Participate in Eval Pain Control: Adequate, Prn Tx Ordered Nausea/Vomiting Control: Adequate, Prn Tx Ordered Complications Possibly Related to Anesthesia: None Noted
--- NOTE | 2018-04-21 16:39 | HOSPPROG ---
Hospitalist Progress Note Assessment/Plan: This is a 33 y/o male with history of CRPS with chronic opioid use presenting with acute on chronic abdominal pain, vomiting and diarrhea. Acute on chronic abdominal pain - EGD/Colonoscopy today, discussed with Dr. Lang, who suspects pain is more related constipation/obstipation, duodenitis noted. -start PPI -pain control, miralax Opioid dependency: In setting of CRPS. Missed his home meds due to N/V, suspect some degree of opioid withdrawal on arrival -Cont home Morphine SR, Dilaudid Tobacco use disorder: nicoderm patch, pt was counselled on cessation Diet: Regular as tolerated VTE ppx: SCDs Code: Full Dispo: cont inpt, possible dc in am Subjective: Pt feels better, still has some discomfort, but much better overall. A little nausea, no vomiting. No fevers. He just returned from EGD/ cscope. Objective: Vital Signs Temp Pulse Resp BP Pulse Ox 36.6 C 79 18 138/77 H 94 04/21/18 16:00 04/21/18 16:00 04/21/18 16:00 04/21/18 16:00 04/21/18 16:00 Microbiology 04/21/18 08:30 Gastrointestinal Tract Panel (PCR) - Final Stool No Organism Detected By Pcr 04/20/18 04/21/18 04/22/18 05:59 05:59 05:59 Intake Total 1200 870 Output Total 225 500 Balance 975 370 PT 12.3 SEC (12.0-15.0) 04/19/18 14:31 INR 0.89 (0.83-1.16) 04/19/18 14:31 - Physical Exam Constitutional: no apparent distress Eyes: PERRL Ears, Nose, Mouth, Throat: moist mucous membranes Cardiovascular: regular rate and rhythym Respiratory: no respiratory distress, clear to auscultation Gastrointestinal: normoactive bowel sounds, other (soft, nd, mild TTP no r/r/g) Skin: warm Musculoskeletal: full muscle strength Neurologic: AAOx3 ICD10 Worksheet Patient Problems: Problems Problem Status Onset Abdominal pain Acute Chronic pain Acute Acute colitis Acute C. difficile colitis Acute C. difficile diarrhea Acute 06/24/16 Chronic abdominal pain Acute Diarrhea Acute Nausea & vomiting Acute Nausea & vomiting Acute Opiate dependence, continuous Acute
[2018-04-21] MEDS: PANTOPRAZOLE SODIUM 40 MG TAB PO SCH (17:52)
[2018-04-21] MEDS: NICOTINE 21 MG/24 HR PATCH TD SCH (21:59)
[2018-04-21] MEDS: morphINE SR 60 MG TAB PO SCH (22:03)
[2018-04-22] MEDS: HYDROmorphONE/DILAUDID 4 MG TAB PO SCH (06:20)
[2018-04-22] MEDS: morphINE SR 15 MG TAB PO SCH (06:21)
[2018-04-22] MEDS: morphINE SR 30 MG TAB PO SCH (06:21)
[2018-04-22 07:36] VITALS: BP 119/80
[2018-04-22] MEDS: PANTOPRAZOLE SODIUM 40 MG TAB PO SCH (07:58)
[2018-04-22] MEDS ORDERED: POLYETHYLENE GLYCOL 3350 17 GM PKT PO SCH (09:00)
--- NOTE | 2018-04-23 06:14 | GDS ---
[f rep st] DISCHARGE SUMMARY DISCHARGE DIAGNOSES: 1. Acute on chronic abdominal pain. 2. Chronic pain with chronic continuous opioid dependence. 3. Tobacco use disorder. CONSULTANTS: Dr. Dawit Lang, Gastroenterology. IMAGING STUDIES/PROCEDURES: 1. Abdomen CT, April 19, 2018, showed evidence of diverticulosis, but nothing acute to explain the abdominal pain. 2. Colonoscopy on April 21, 2018, revealed normal ileum and normal colon. Biopsies were sent and r esults are pending. 3. Upper endoscopy, April 21, 2018, revealed normal esophagus, normal stomach, and evidence of duo denitis with normal 2nd and 3rd portion of the duodenum. Biopsies are pending. HISTORY OF DETAILS: Please see history and physical dated April 19, 2018. In brief, the patient is a 33-year-old male with history of chronic regional pain syndrome and opioid dependence who presente d to the emergency department with diffuse abdominal pain and vomiting. He was admitted to the hospit al for further management. HOSPITAL COURSE: The patient was admitted to the medical/surgical unit. He received supportive care with IV fluids, antiemetics, and pain control. His GI PCR panel was negative for infectious etiology of his pain. A GI consult was obtained. He underwent upper endoscopy as well as colonoscopy with resu lts described above. It is thought possible that he has chronic obstipation and constipation in the s etting of chronic opioids and it is recommended he continue on MiraLAX as well as Senokot to maintain bowel motility. He has significantly weaned down his opioid dose and continues to consider this opti on. In addition, it is possible he is having pain from his duodenitis. Biopsies are pending. He was treat ed with Protonix twice daily. His symptoms did improve. He was able to tolerate a full diet and wishe d to go home. DISPOSITION: Patient is discharged home in stable condition. FOLLOWUP: 1. Dr. Dawit Lang, [facility], for results of his colonoscopy and upper en doscopy biopsy. 2. Dr. Corey Moeller, primary care. DISCHARGE MEDICATIONS: 1. Please see [facility] completed medication list. New medications on discharge include Protonix 40 m g p.o. daily, #30, no refills. 2. Senokot 8.6 mg p.o. twice daily p.r.n., #60, no refills. 3. MiraLAX 17 g p.o. daily. 4. He will continue all other outpatient medications as previously prescribed. /[id number]/ANTHONYL
== END 2018-04-22 09:00 | disposition home or self-care (01) | DRG 251 ==
LOC: F2W 16:34 → OBSVTOIN 04-20 13:32
PROVIDERS: ADMIT Family Medicine; ATTEND Family Medicine
DX: R10.9 Unspecified abdominal pain (principal); R11.2 Nausea with vomiting, unspecified; R19.7 Diarrhea, unspecified; K29.80 Duodenitis without bleeding; G89.29 Other chronic pain; F11.20 Opioid dependence, uncomplicated; Z87.891 Personal history of nicotine dependence
CPT/HCPCS: 96374; J1170; J1885; J2270; J2405; J2550; J2704; Q9967

== ENCOUNTER 2018-08-18 21:33 | Emergency (ER) | payer MEDICAID | END 2018-08-19 00:26 | disposition home or self-care (01) ==

== ENCOUNTER 2018-08-19 20:18 | Inpatient (IN) | payer MEDICAID ==
--- NOTE | 2018-08-19 20:34 | EDPHY ---
H & P Time Seen by Provider: 08/19/18 20:28 HPI/ROS: Chief complaint. Chest and abdominal pain HPI. Patient is a 33-year-old male with 6 day history of nausea vomiting diarrhea and abdominal pain. Pain is mid abdomen and shooting but does not radiate to the back. He has had nausea vomiting diarrhea. Some central chest discomfort that is worse with breathing and slight shortness of breath. Slight cough. Fever to 102 degrees. No recent travel or known exposure to Infectious Disease. Patient has had several visits to [facility] ED and had a CT scan of the head that was normal. A normal lumbar puncture. CT abdomen and pelvis were normal at [facility]. He was seen last night and treated with IV fluids, Haldol, magnesium for headache and ketamine for pain. GI pathogen panel did not grow any bacteria. He does have a history of C diff however. He returns with pain and vomiting tonight ROS 10 systems were reviewed and negative with the exception of the elements mentioned in the history of present illness Past Medical/Surgical History: Chronic regional pain syndrome, C diff, oral surgery, cellulitis, migraines Social History: , nonsmoker, no alcohol Smoking Status: Former smoker Physical Exam: General Appearance: Alert pleasant well-developed male mild distress vital signs are stable with mild tachycardia Eyes: Pupils equal and round no pallor or injection. ENT, Mouth: Mucous membranes are moist. Respiratory: There are no retractions, lungs are clear to auscultation. Cardiovascular: Regular rate and rhythm. Gastrointestinal: Abdomen is soft with tenderness in the periumbilical area and slightly to the right side. No masses. Normal bowel sounds Neurological: Awake and alert, sensory and motor exams grossly normal. Skin: Warm and dry, no rashes. Musculoskeletal: Neck is supple nontender. Extremities symmetrical, full range of motion. Psychiatric: Patient is oriented X 3, there is no agitation. Constitutional: Initial Vital Signs Temperature (C) 36.9 C 08/19/18 20:22 Heart Rate 118 H 08/19/18 20:22 Respiratory Rate 20 08/19/18 20:22 Blood Pressure 113/85 H 08/19/18 20:22 O2 Sat (%) 97 08/19/18 20:22 O2 Delivery Mode Room Air Allergies/Adverse Reactions: gabapentin Allergy (Mild, Verified 08/19/18 20:25) pineapple Allergy (Verified 08/19/18 20:25) pregabalin [From Lyrica] Allergy (Verified 08/19/18 20:25) Home Medications: Medication Instructions Recorded Ketamine Nasal [place] 1 - 2 spray EACHNARE QID PRN 01/21/16 Multivitamins [Multivitamin (*)] 1 each PO DAILY 02/03/16 Naloxone HCl [Narcan] 1 ml NS AD 06/24/16 Ondansetron Odt [Zofran Odt 4 mg 4 mg PO Q4PRN PRN #20 tab 04/18/18 (*)] Albuterol [Proventil Inhaler HFA 1 - 2 puffs IH BID PRN 04/19/18 (*)] Cyclobenzaprine [Flexeril 10 MG 10 mg PO BID@12,04/19/18 (*)] Ermvg Pen 70mg 70 mg SQ Q30D 04/19/18 Eszopiclone [Lunesta] 2 mg PO HS 04/19/18 HYDROmorphone HCL [Dilaudid] 4 mg PO 12,17 04/19/18 HYDROmorphone HCL [Dilaudid] 8 mg PO 06,04/19/18 morphINE SR [MS Contin/Oramorph 60 60 mg PO DAILY@22 04/19/18 mg (*)] morphINE SR [MS Contin/Oramorph SR 30 mg PO DAILY AT 6AM 04/19/18 30 mg (*)] morphINE SR [Ms Contin/Oramorph 15 15 mg PO DAILY06 04/19/18 mg (*)] Polyethylene Glycol 3350 [Miralax 17 gm PO DAILY #30 pkt 04/22/18 17 gm (*)] Sennosides [Senokot] 8.6 mg PO BID #60 tablet 04/22/18 Medical Decision Making - Diagnostics Imaging Results: Imaging Impressions Chest/Thorax CTA 08/19/18 21:17 Impression: 1. No pulmonary embolism. 2. Query reactive airways disease with prominence of the centrilobular nodularity and mild septal thickening to the upper lobes. Findings and recommendations discussed with LOU HAMLIN at 10:40 PM hour, . Final report concurs with initial preliminary interpretation. Procedures: IV normal saline. Initially ketamine for pain and then after CT findings Dilaudid for pain. ED Course/Re-evaluation: Re-evaluation patient is stable. He and I discussed imaging study results, treatment plan including recommendation for admission. He expresses understanding and agreement I consulted discussed case with who agrees to the admission Differential Diagnosis: Fairly extensive workup over the last several days and now tonight patient has diagnosis of colitis on CT. I also considered pulmonary embolus as he had an elevated D-dimer. No evidence of PE or pneumonia. Etiology of the colitis is unclear as the patient had a negative GI pathogen panel last night - Data Points Laboratory Results: Laboratory Results 08/19/18 20:49 08/19/18 20:49 08/19/18 08/19/18 08/19/18 22:00 21:22 20:49 WBC RBC Hgb Hct MCV MCH MCHC RDW Plt Count MPV Neut % (Auto) Lymph % (Auto) [place] % (Auto) Eos % (Auto) Baso % (Auto) Nucleat RBC Rel Count Absolute Neuts (auto) Absolute Lymphs (auto) Absolute Monos (auto) Absolute Eos (auto) Absolute Basos (auto) Absolute Nucleated RBC Immature Gran % Immature Gran # D-Dimer 1.12 ug/mLFEU H ug/mLFEU (0.00-0.50) Sodium Potassium Chloride Carbon Dioxide Anion Gap BUN Creatinine Estimated GFR Glucose Calcium Total Bilirubin Conjugated Bilirubin Unconjugated Bilirubin AST ALT Alkaline Phosphatase POC Troponin I 0.02 ng/mL ng/mL (0.00-0.08) Total Protein Albumin Lipase Urine Color PALE YELLOW Urine Appearance CLEAR Urine pH 7.0 (5.0-7.5) Ur Specific Henry 1.003 (1.002-1.030) Urine Protein NEGATIVE (NEGATIVE) Urine Ketones NEGATIVE (NEGATIVE) Urine Blood NEGATIVE (NEGATIVE) Urine Nitrate NEGATIVE (NEGATIVE) Urine Bilirubin NEGATIVE (NEGATIVE) Urine Urobilinogen NEGATIVE EU EU (0.2-1.0) Ur Leukocyte Esterase NEGATIVE (NEGATIVE) Urine RBC NONE SEEN /hpf /hpf (0-3) Urine WBC 1-3 /hpf /hpf (0-3) Ur Epithelial Cells NONE SEEN /lpf /lpf (NONE-1+) Urine Glucose NEGATIVE (NEGATIVE) 08/19/18 08/19/18 20:49 20:49 WBC 9.10 10^3/uL 10^3/uL (3.80-9.50) RBC 5.24 10^6/uL 10^6/uL (4.40-6.38) Hgb 16.0 g/dL g/dL (13.7-17.5) Hct 45.1 % % (40.0-51.0) MCV 86.1 fL fL (81.5-99.8) MCH 30.5 pg pg (27.9-34.1) MCHC 35.5 g/dL g/dL (32.4-36.7) RDW 12.9 % % (11.5-15.2) Plt Count 336 10^3/uL 10^3/uL (150-400) MPV 9.5 fL fL (8.7-11.7) Neut % (Auto) 57.0 % % (39.3-74.2) Lymph % (Auto) 30.1 % % (15.0-45.0) [place] % (Auto) 8.8 % % (4.5-13.0) Eos % (Auto) 3.0 % % (0.6-7.6) Baso % (Auto) 0.7 % % (0.3-1.7) Nucleat RBC Rel Count 0.0 % % (0.0-0.2) Absolute Neuts (auto) 5.19 10^3/uL 10^3/uL (1.70-6.50) Absolute Lymphs (auto) 2.74 10^3/uL 10^3/uL (1.00-3.00) Absolute Monos (auto) 0.80 10^3/uL 10^3/uL (0.30-0.80) Absolute Eos (auto) 0.27 10^3/uL 10^3/uL (0.03-0.40) Absolute Basos (auto) 0.06 10^3/uL 10^3/uL (0.02-0.10) Absolute Nucleated RBC 0.00 10^3/uL 10^3/uL (0-0.01) Immature Gran % 0.4 % % (0.0-1.1) Immature Gran # 0.04 10^3/uL 10^3/uL (0.00-0.10) D-Dimer Sodium 139 mEq/L mEq/L (135-145) Potassium 3.2 mEq/L L mEq/L (3.5-5.2) Chloride 104 mEq/L mEq/L (97-110) Carbon Dioxide 22 mEq/l mEq/l (22-31) Anion Gap 13 mEq/L mEq/L (6-14) BUN 2 mg/dL L mg/dL (7-23) Creatinine 0.6 mg/dL L mg/dL (0.7-1.3) Estimated GFR > 60 Glucose 104 mg/dL H mg/dL (70-100) Calcium 8.9 mg/dL mg/dL (8.5-10.4) Total Bilirubin 0.4 mg/dL mg/dL (0.1-1.4) Conjugated Bilirubin 0.0 mg/dL mg/dL (0.0-0.5) Unconjugated Bilirubin 0.4 mg/dL mg/dL (0.0-1.1) AST 13 IU/L L IU/L (17-59) ALT 19 IU/L L IU/L (21-72) Alkaline Phosphatase 85 IU/L IU/L (38-126) POC Troponin I Total Protein 6.9 g/dL g/dL (6.3-8.2) Albumin 4.4 g/dL g/dL (3.5-5.0) Lipase 123 IU/L IU/L (23-300) Urine Color Urine Appearance Urine pH Ur Specific Henry Urine Protein Urine Ketones Urine Blood Urine Nitrate Urine Bilirubin Urine Urobilinogen Ur Leukocyte Esterase Urine RBC Urine WBC Ur Epithelial Cells Urine Glucose Medications Given: Discontinued Medications Sodium Chloride (Ns) 1,000 mls @ 0 mls/hr IV EDNOW ONE; Wide Open PRN Reason: Protocol Stop: 08/19/18 20:49 Last Admin: 08/19/18 20:58 Dose: 1,000 mls Sodium Chloride (Ns) 1,000 mls @ 0 mls/hr IV EDNOW ONE; Wide Open PRN Reason: Protocol Stop: 08/19/18 21:16 Last Admin: 08/19/18 21:58 Dose: 1,000 mls Ketamine HCl (Ketamine) 20 mg IVP EDNOW ONE Stop: 08/19/18 20:51 Last Admin: 08/19/18 20:59 Dose: 20 mg Ondansetron HCl (Zofran) 4 mg IVP EDNOW ONE Stop: 08/19/18 22:04 Last Admin: 08/19/18 22:05 Dose: 4 mg Promethazine HCl (Phenergan) 12.5 mg IVP EDNOW ONE Stop: 08/19/18 20:49 Last Admin: 08/19/18 21:02 Dose: 12.5 mg Point of Care Test Results: Chemistry 08/19/18 21:22 POC Troponin I 0.02 ng/mL ng/mL (0.00-0.08) Departure - Departure [facility] Clinical Impression: Acute colitis Condition: Fair Referrals: Trino Moid MD [Primary Care Provider] - As per Instructions
[2018-08-19] MEDS ORDERED: PROMETHAZINE HCL 25 MG/ML INJ IVP ONE (20:48)
[2018-08-19] MEDS ORDERED: NS 1,000 ML IV ONE ×2 (20:48→21:15)
[2018-08-19] MEDS ORDERED: KETAMINE 200 MG/20 ML VIAL IVP ONE (20:50)
[2018-08-19 21:01] LABS: PLATELET COUNT 336 10^3/uL (150-400)
[2018-08-19] MEDS ORDERED: IOPAMIDOL (ISOVUE 370) 100 ML BTL IV ONE (21:20)
[2018-08-19] MEDS ORDERED: ONDANSETRON 4 MG/2 ML VIAL ONE (22:01)
[2018-08-19] MEDS ORDERED: ONDANSETRON 4 MG/2 ML VIAL IVP ONE (22:03)
[2018-08-19] MEDS ORDERED: HYDROmorphONE/DILAUDID 2 MG/ML INJ IVP ONE (22:48)
--- NOTE | 2018-08-19 23:11 | CPEKG ---
Test Reason : OPEN Blood Pressure : / mmHG Vent. Rate : 099 BPM Atrial Rate : 102 BPM P-R Int : 138 ms QRS Dur : 102 ms QT Int : 354 ms P-R-T Axes : 063 067 -28 degrees QTc Int : 455 ms Sinus rhythm Probable left atrial enlargement Borderline T abnormalities, inferior leads Confirmed by Lou Jordan ([id number]) on 08/19/2018 11:10:25 PM Referred By: LOU JORDAN Confirmed By:Lou Jordan
[2018-08-19] MEDS ORDERED: NS W/ 20 KCl/L 1,000 ML IV SCH (23:45)
[2018-08-19] MEDS ORDERED: ONDANSETRON DISINTEGRATING 4 MG TAB PO PRN (23:46)
[2018-08-19] MEDS ORDERED: HYDROCODONE/APAP 5/325 TAB PO PRN (23:46)
[2018-08-19] MEDS ORDERED: LORazepam 2 MG/ML INJ IVP PRN (23:46)
[2018-08-19] MEDS ORDERED: ACETAMINOPHEN 325 MG TAB PO PRN (23:46)
[2018-08-20] MEDS: ONDANSETRON 4 MG/2 ML VIAL IVP PRN ×5 (00:17→21:03)
[2018-08-20] MEDS ORDERED: ALBUTEROL 60 PUFFS/8 GM MDI IH PRN ×2 (03:20→11:14)
--- NOTE | 2018-08-20 04:04 | GHP ---
[f rep st] HISTORY AND PHYSICAL DATE OF ADMISSION: 08/19/2018 SOURCE: Patient provides history, appears reliable. EMR was reviewed and case discussed with ED pro vider. CHIEF COMPLAINT: Nausea, vomiting, diarrhea, and abdominal pain. HISTORY OF PRESENT ILLNESS: This is a pleasant 33-year-old gentleman with a past medical history sig nificant for chronic regional pain syndrome, history of C-difficile x2, migraines headaches, and IBS who presents to the emergency department with complaints of 6 days of nausea, vomiting, diarrhea, and abdominal pain. The patient also had complained of some chest pain and headache. He initially pres ented to [place] where he underwent a CT of the head, LP, and additional imaging for his abdominal p ain. At that time, no acute source for patient's symptoms was identified. He presented to the [facility] on 08/18/2018. Additional evaluation including GI and PCR returned negative. The patient was subs equently discharged and continued to have symptoms with worsening abdominal pain. He also reported a fever to 102 Fahrenheit. Patient reports that several days ago he had a few episodes of bright red blood per rectum, which has since resolved. He denies any hematemesis. His nausea and vomiting have improved since his admission. He has had a few loose watery stools since his arrival. REVIEW OF SYSTEMS: Ten systems reviewed, negative except as noted above. ALLERGIES: To gabapentin, Lyrica, pineapple. HOME MEDICATIONS: See EMR for a complete list, not yet verified by Pharmacy; morphine SR, Senokot, M iraLAX, Zofran, naloxone, multivitamin, ketamine nasal spray, Dilaudid, Lunesta, Flexeril, albuterol. PAST MEDICAL HISTORY: Significant for diverticulosis, history of TB remotely, chronic regional pain syndrome extending down to the right lower extremity, history of C-difficile in 2016 and an additiona l episode since that time, migraine headaches, IBS, history of left leg cellulitis. The patient with a history of skin cancer recently removed. PAST SURGICAL HISTORY: Significant for oral surgery, EGD, and colonoscopy. FAMILY HISTORY: Positive for cancer. SOCIAL HISTORY: Patient is lives, lives with his in [place]. 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 He denies illicit drugs or alcohol. Has used a nicotine patch in the past, but no other t obacco products. CODE STATUS: Full. PHYSICAL EXAM: VITAL SIGNS: Blood pressure 113/85, heart rate 118, respiratory rate 20, O2 saturati on 97% on room air, temperature 36.9. Current vital signs available: Blood pressure is 144/99, hear t rate is 84, respiratory rate 16, O2 saturation 96% on room air, temperature 36.8. GENERAL: No acu te distress, pleasant adult gentleman lying in bed. He does appear slightly uncomfortable with any k ind of movement of his abdomen. HEAD: Normocephalic, atraumatic. EYES: Extraocular muscles are gr ossly intact. Pupils equal and symmetric. No scleral icterus or conjunctival injection. ENT: Muco us membranes appear slightly dry. No nasal discharge. CV: Regular rate and rhythm. No murmurs, ru bs, or gallops appreciated. RESPIRATORY: Patient with some audible wheezing on the anterior lung fi elds. No rhonchi or rales. Slightly decreased inspiratory effort with complaints of pain. : No suprapubic tenderness. No De Los Santos catheter in place. MUSCULOSKELETAL: Limited exam. Patient lying c omfortably in bed. He is able to move all distal upper and lower extremities. NEURO: Grossly nonfo khai. No facial drooping. Moves all extremities. PSYCH: Does appear a little uncomfortable, but hi s thought process, content, and questions are all appropriate. Patient is pleasant and cooperative. LABORATORY STUDIES: WBC 9.10, H and H is 16.0 and 45.1, MCV 86.1, platelet count is 336, neutrophil % 57.0. D-dimer is 1.12. Sodium is 139, potassium 3.2, chloride 104, CO2 of 22, anion gap of 13, BU N is 12, creatinine 0.6, GFR greater than 60, glucose 104, calcium is 8.9. Total bilirubin 0.4, ALT is 19, AST is 13, alkaline phosphatase 85. Troponin 0.02. Total protein 6.9, albumin 4.4, lipase 12 3. Procalcitonin is negative. UA; specific gravity 1.013 and is otherwise negative. Fecal leukocyt es pending. IMAGING DATA: Chest x-ray; diffuse bronchitis that is chronic. No PE. Query reactive airway diseas e, probable central lobular nodularity. Mild septal thickening in the upper lobes. CT abdomen and pelvis with contrast showing extensive wall thickening involving the mid descending co flaca through rectosigmoid junction indicating colitis. Differential primarily includes infectious romeo coy inflammatory. No perforation or abscess at this time. New since March 22, 2018, associated wit h surrounding mesenteric fat stranding. Colitis primary differential. Free fluid around the liver i ndicating a small amount of ascites. ASSESSMENT AND PLAN: A pleasant 33-year-old gentleman with a history of chronic regional pain syndro me with pain, opiate use, and history of multiple episodes of Clostridium difficile who presents to [facility] emergency department today with complaints of chest pain, headache, nausea, vomiting, diarrhea, an d abdominal pain worsening over the last 6 days. 1. Colitis in the descending colon to the rectosigmoid junction: The patient has been afebrile sinc e admission. White count is within normal limits. Procalcitonin ordered is negative. Patient is hi gh risk for recurrence of Clostridium difficile. Fecal leukocytes have been ordered. He has had a p revious colonoscopy in March, which culture and biopsies did not show any evidence of microscopic c olitis. GI PCR from 2 days ago was negative. Additional discussion with GI later this morning. 2. Acute abdominal pain: Supportive care. Pain likely to be slightly difficult given his history o f long-term opiate use and treatment for his chronic regional pain syndrome. 3. Nausea and vomiting, not intractable and is currently under control with antiemetics p.r.n. 4. Chest pain: Patient with evidence of likely chronic bronchitis, reactive airway disease. Offere d albuterol in setting of persistent wheezing. The patient declined at this time. No steroids indic ated at this time, particularly while under evaluation of source of patient's colitis. 5. Hypokalemia, likely secondary to GI losses with nausea, vomiting, and diarrhea: IV fluid replace ment. Repeat in the morning. May require additional bolusing. 6. Chronic regional pain syndrome: Resume patient's home medications once med rec is completed. 7. Fluid, electrolytes, nutrition: Normal saline, potassium, electrolyte monitoring, replacement as noted above. Advance diet as tolerated. 8. Prophylaxis: SCDs. Holding anticoagulation given overall low risk as well as patient's complain t of recent GI bleeding. 9. Code status is full. 10. Disposition: Patient admitted to observation on med/surge floor pending review of laboratory st udies and possibly additional discussion with GI. /[id number]/MODL
[2018-08-20] MEDS ORDERED: NICOTINE 14 MG/24 HR PATCH TD SCH (06:00)
[2018-08-20] MEDS ORDERED: NS W/ 20 KCl/L 1,000 ML IV SCH (10:15)
[2018-08-20] MEDS ORDERED: LORazepam 2 MG/ML INJ IVP PRN (10:19)
[2018-08-20] MEDS ORDERED: CYCLOBENZAPRINE 10 MG TAB PO PRN (11:14)
[2018-08-20] MEDS ORDERED: DICYCLOMINE 10 MG CAP PO PRN (11:14)
[2018-08-20] MEDS ORDERED: KETAMINE EACHNARE PRN (11:14)
[2018-08-20] MEDS ORDERED: HYDROmorphONE/DILAUDID 2 MG TAB PO PRN (11:14)
[2018-08-20] MEDS ORDERED: chlordiazePOXIDE 25 MG CAP PO SCH (11:15)
[2018-08-20] MEDS ORDERED: LIDOCAINE 2% VISCOUS 15 ML UDCUP MISC PRN (11:30)
[2018-08-20] MEDS: morphINE SR 60 MG TAB PO SCH ×2 (11:47→20:28)
--- NOTE | 2018-08-20 12:40 | ASMTCMCOM ---
CM Note CM Note Notes: Chart reviewed for discharge planning. Pt is a 33 yr old admitted with 6 days of nausea, vomiting, diarrhea, and abdominal pain. Pt was seen in the ER on 08/18 and discharged. Re-admitted 08/19 from the ER. Pt has a history of chronic regional pain syndrome, C-diff x2, IBS, left leg cellulitis. CM available if needs arise. PLAN: Likely discharge home Independently with when medically cleared. Date Signed: 08/20/2018 12:39 PM Electronically Signed By:Adore Tapia.RN,THIRD RAIL INSTALLER
--- NOTE | 2018-08-20 12:41 | HOSPPROG ---
Hospitalist Progress Note Assessment/Plan: Abdominal pain with N/V/D - CT with e/o colitis. GI PCR neg on 08/18. Fecal leuks neg today. N/V have resolved. Still having some diarrhea. Per review of GI notes 03/2018, he had negative colonoscopy and EGD with normal esophagus, stomach, mild duodenitis. GI recommended BID Miralax at that time indefinitely. -supportive care, pain control, IVF's, bowel rest -hold laxatives, prn imodium -if not improving with conservative measures, will request GI consult -?consider opioid withdrawal Hypokalemia - 2/2 GI losses -replace, follow CRPS - cont home dilaudid Chronic continuous opioid dependence - I've requested PDMP data -cont home meds Full code DVT PPLX - low risk, SCD's Dispo - cont inpt, ADD 1-2 days Subjective: Pt doing ok, says he is still having loose stools, 6 times overnight. No fevers/chills. Nausea and vomiting have resolved. Still c/o abdominal pain. CRPS in LE is starting to act up, needs his home dilaudid doses. Objective: Vital Signs Temp Pulse Resp BP Pulse Ox 36.6 C 81 16 135/97 H 94 08/20/18 11:37 08/20/18 11:37 08/20/18 11:37 08/20/18 11:37 08/20/18 11:37 Microbiology 08/20/18 01:45 Fecal Leukocyte Stain - Final Stool Laboratory Results 08/20/18 04:24 08/19/18 08/20/18 08/21/18 05:59 05:59 05:59 Intake Total 250 762 Output Total 15 Balance 235 762 - Physical Exam Constitutional: no apparent distress Eyes: PERRL Ears, Nose, Mouth, Throat: moist mucous membranes Cardiovascular: regular rate and rhythym Respiratory: no respiratory distress Gastrointestinal: normoactive bowel sounds, soft, non-tender abdomen Skin: warm Musculoskeletal: full muscle strength Neurologic: AAOx3 Psychiatric: interacting appropriately ICD10 Worksheet Patient Problems: Problems Problem Status Onset Acute colitis Acute Abdominal pain Acute C. difficile colitis Acute C. difficile diarrhea Acute 06/24/16 Chronic abdominal pain Acute Chronic pain Acute Diarrhea Acute Nausea & vomiting Acute Nausea & vomiting Acute Opiate dependence, continuous Acute
[2018-08-20] MEDS: POTASSIUM Cl (KCl) 20 MEQ in 1/2 NS 1,000 ML IV SCH (13:32)
[2018-08-20] MEDS ORDERED: ERENUMAB SQ ONE (14:00)
[2018-08-20] MEDS: HYDROmorphONE/DILAUDID 2 MG TAB PO SCH ×2 (15:55→20:28)
[2018-08-20] MEDS: LOPERAMIDE HCL 2 MG CAP PO PRN ×2 (15:56→19:15)
[2018-08-20] MEDS ORDERED: CYCLOBENZAPRINE 10 MG TAB PO SCH (21:00)
[2018-08-20] MEDS ORDERED: ESZOPICLONE 2 MG PO SCH (21:00)
[2018-08-21] MEDS: POTASSIUM Cl (KCl) 20 MEQ in 1/2 NS 1,000 ML IV SCH (02:48)
[2018-08-21] MEDS ORDERED: NICOTINE 7 MG/24 HR PATCH TD SCH (06:00)
[2018-08-21 08:05] VITALS: BP 105/68
[2018-08-21] MEDS: morphINE SR 60 MG TAB PO SCH (08:17)
[2018-08-21] MEDS ORDERED: HYDROmorphONE/DILAUDID 4 MG TAB PO SCH (09:00)
[2018-08-21] MEDS ORDERED: KETOCONAZOLE 2% 15 GM CREAM TP SCH (09:00)
--- NOTE | 2018-08-21 11:03 | ASDISCHSUM ---
Discharge Information Plan Status:Home with No Needs Medically Cleared to Leave: Discharge Date: D/C Disposition: ADT D/C Disposition:Home, Routine, Self-Care Projected Discharge Date: Transportation at D/C: Discharge Delay Reason: Follow-Up Date: Discharge Slot: Final Diagnosis: Placement Information Patient Contact Information Contact Name:ANGSU Relationship: Address:[address] Work Phone: City:[facility] Phone: State/Zip Code:[place] [address] Email: Financial Information Financial Class:Medicaid Primary Plan Desc:[employer] Primary Plan Number:[id number] Secondary Plan Desc: Secondary Plan Number: Assessment Information BC CM Progress Note CM Note CM Note Notes: Chart reviewed for discharge planning. Pt is a 33 yr old admitted with 6 days of nausea, vomiting, diarrhea, and abdominal pain. Pt was seen in the ER on 08/18 and discharged. Re-admitted 08/19 from the ER. Pt has a history of chronic regional pain syndrome, C-diff x2, IBS, left leg cellulitis. CM available if needs arise. PLAN: Likely discharge home Independently with when medically cleared. Date Signed: 08/20/2018 12:39 PM Electronically Signed By:Adore Amaya Dionne.RN, LPC LACE LACNelda Length of stay for Answers: 2 days current admission Acuity / Level of Answers: No Care: Did the patient have an inpatient admission? # of Emergency department Answers: 1-2 visits in the last 6 months Score: 3 Date Signed: 08/21/2018 11:00 AM Electronically Signed By:Brandee Holt Case Management Discharge Plan Note Case Management Discharge Discharge Order Complete? Answers: Yes Transportation Arranged Answers: Family/Friends Family Notified Answers: Yes Notes: is here Discharge Comments Notes: Pt is being DCd independently to home today. His Edda Cross will drive him home. No CM needs identified. Date Signed: 08/21/2018 11:02 AM Electronically Signed By:Brandee VillanuevaRN Intervention Information Intervention Type:*Incorrect Registration Date of Service:08/20/2018 09:41 AM Patient Type:Inpatient Staff Member:Maryuri Stapleton Hours: Discipline: Severity: Comment:
--- NOTE | 2018-08-21 11:27 | PDMN ---
Medical Necessity Medical necessity: [facility] M170 Gastroenteritis, A-2 days: 33 yo w/ c/o n/v, diarrhea and abd pain. Eval reveals colitis. Initially OBS but pt requires additional MN for ongoing diarrhea, cont IVF and frequent IV opioid admin for pain management q1-2 hours. Meets [facility] IP criteria for persistent dehydration and severe pain. Change to IP status 08/20/18@1707 per MD order. Hx diverticulosis, remote TB, chronic regional pain syndrome, Cdiffx2, IBS, LLE cellulitis, migraines, skin
--- NOTE | 2018-08-21 13:13 | PDDCSUM ---
Discharge Summary Discharge Summary: DOA: 08/19/2018 DOD: 08/21/2018 D/C Diagnoses: Abdominal pain Nausea, vomiting, diarrhea - resolved Hypokalemia - resolved Chronic regional pain syndrome Chronic continuous opioid dependence Hx and hosp course: 33 yo male with h/o CRPS and opioid dependence presents to ED with N/V/D. CT imaging revealed non-specific colitis. GI PCR the day prior to admission was negative and fecal leukocytes on day of admission were also negative making an infectious etiology unlikely. The patient has chronic bowel dysmotility and dysfunction in the setting of high dose opioid therapy. He was admitted in 03/2018 with similar GI problems and EGD and colonoscopy at that time were negative other than mild duodenitis. GI recommended BID Miralax, which he took for about one month, but has since discontinued. I reviewed his PDMP and found it interesting that his next MS Contin and Dilaudid refills are due 08/22. I inquired if he might have run out of his opioids early and he admitted to this being true. It's possible he was having opioid w/d as an explanation for his acute abdominal discomfort and N/V and diarrhea. All of his symptoms resolved upon resuming his home opioid doses in the hospital. On the day of discharge, he feels his bowel function is back to his baseline, which is not entirely normal, but manageable. He will follow up with GI and his PCP. His chronic pain doctor is Dr. Daniels. Dispo: pt is discharged home in stable condition D/C meds: no new medications at discharge. See [facility] for complete list of current medications. No changes.
== END 2018-08-21 11:46 | disposition home or self-care (01) | DRG 249 ==
LOC: INTOOBSV 22:53 → F1N 23:38 → OBSVTOIN 08-20 17:07
PROVIDERS: ADMIT Family Medicine; ATTEND Family Medicine
DX: K52.9 Noninfective gastroenteritis and colitis, unspecified (principal); F11.20 Opioid dependence, uncomplicated; K59.8 Other specified functional intestinal disorders; T40.2X5A Adverse effect of other opioids, initial encounter; E86.9 Volume depletion, unspecified; E87.6 Hypokalemia; G90.50 Complex regional pain syndrome I, unspecified; Z87.891 Personal history of nicotine dependence
CPT/HCPCS: 84484-ER; 96374; J1170; J2060; J2270; J2405; J2550; J3480; Q9967